=== PATIENT | female | born 1940 | race Caucasian/White ===

== ENCOUNTER 2019-12-28 09:47 | Outpatient (CLI) | payer MEDICARE, SELFPAY ==
--- NOTE | ~2019-12-28 | US_ITS ---
US retroperitoneal comp 12/28/2019 10:30 Procedure: Left renal atrophy. Renal mass. Indication: High-resolution ultrasound of the and bladder Comparison: No prior studies for comparison. Findings: There is left renal atrophy with severe hydronephrosis. There are multiple stones identifie d in the renal collecting system. Right renal echotexture is normal without hydronephrosis, mass or s tone. The right kidney measures 10.3 cm and left kidney measures 11 cm. Bladder is not distended for evaluation. Impression: 1: Severe left renal atrophy with stones and severe hydronephrosis. Reviewed, dictated and finalized at location B. Impression: 1: Severe left renal atrophy with stones and severe hydronephrosis.
== END 2019-12-28 09:48 | disposition home or self-care (01) ==
PROVIDERS: PCP Family Medicine; Visit Provider Urology
DX: N28.89 Other specified disorders of kidney and ureter (principal)
CPT/HCPCS: 76770

== ENCOUNTER 2020-12-04 14:04 | Outpatient (CLI) | payer MEDICARE, SELFPAY ==
--- NOTE | ~2020-12-04 | MM_ITS ---
EXAMINATION: MM screening [facility] BI w andria HISTORY: Screening mammogram TECHNIQUE: Craniocaudal and mediolateral oblique 3-D tomosynthesis images were obtained and synthetic 2-D images were generated. CAD analysis was submitted and interpreted. COMPARISON: 01/07/2019, 04/09/2016, 04/03/2015 BREAST PARENCHYMAL COMPOSITION: There are scattered areas of fibroglandular density. FINDINGS: Again noted is a stable mass of the lower inner left breast, consistent with benign finding . Scattered benign-appearing calcifications are present. There is no evidence of suspicious mass, saran cification, or architectural distortion to suggest malignancy in either breast. There has been no dannie picious interval change. IMPRESSION: 1. No mammographic evidence of malignancy. 2. Recommend routine screening mammography while the patient remains in good health. BI-RADS Category 2: Benign finding(s). Reviewed, dictated and finalized at location A. IMPRESSION: 1. No mammographic evidence of malignancy. 2. Recommend routine screening mammography while the patient remains in good he alth. BI-RADS Category 2: Benign finding(s).
--- NOTE | ~2020-12-04 | DEXA_ITS ---
Bone Density Report Name: Tana Mcfarlane Age: 80 Sex: Female Ethnicity: White Date of : 1940 Indication: osteopenia; height loss; asthma or emphysema; hysterectomy; postmenopausal Referring Provider: Alfredo Navarro Study: Bone densitometry was performed. Exam Date: December 04, 2020 Accession number: [id number] Bone Density: Region BMD T-score Z-score Classification AP Spine (L2, L3, L4) 0.811 -2.4 0.3 Osteopenia Femoral Neck (Left) 0.494 -3.2 -0.9 Osteoporosis Total Hip (Left) 0.728 -1.8 0.3 Osteopenia Total Hip Bilateral Avg 0.728 -1.8 0.3 Osteopenia Femoral Neck (Right) 0.627 -2.0 0.3 Osteopenia Total Hip (Right) 0.726 -1.8 0.3 Osteopenia World Health Organization criteria for BMD impression classify patients as: Normal (T-score at or above -1.0), Osteopenia (T-score between -1.0 and -2.5), or Osteoporosis (T-score at or below -2.5). 10-year Fracture Risk: FRAX not reported because: Some T-score for Spine Total or Hip Total or Femoral Neck at or below -2.5 Previous Exams: Region Exam Age BMD T-score BMD Change BMD Change Date g/cm2 vs Baseline vs Previous AP Spine(L2, L3, L4) 12/04/2020 80 0.811 -2.4 -0.146(-15.2%) -0.028(-3.4%)* 04/03/2015 74 0.839 -2.2 -0.117(-12.3%) -0.117(-12.3%) 03/22/2010 69 0.956 -1.1 Total Hip(Left) 12/04/2020 80 0.728 -1.8 -0.039(-5.1%)# -0.002(-0.3%) 04/03/2015 74 0.730 -1.7 -0.036(-4.8%)# -0.036(-4.8%)# 03/22/2010 69 0.767 -1.4 Total Hip(Right) 12/04/2020 80 0.726 -1.8 -0.032(-4.2%)# -0.007(-1.0%) 04/03/2015 74 0.733 -1.7 -0.025(-3.3%)# -0.025(-3.3%)# 03/22/2010 69 0.758 -1.5 *Denotes significance at 95% confidence level, LSC for AP Spine = 0.022 g/cm2, LSC for Total Hip = 0.027 g/cm2 Clinical Information Provided by Patient: Has used the following medications: Vitamin D, Calcium Has the following medical conditions: Asthma or Emphysema, Hysterectomy Patient maximum height was 63 Menopause Age: 48 No regular weight bearing exercise Does not regularly consume dairy products Drinks caffeinated beverages Onset of menses at age 13 Number of children 4 Impression: The patient has osteoporosis, based on the Left Femoral Neck T-score. The BMD for the AP Spine(L2, L3, L4) decreased, changing by -3.4% since the last DXA exam. Discussion: INCREASED RISK OF FRACTURE. BONE DENSITY IS UNDESIRABLY LOW AT ONE OR MORE SKELETAL SITES, CONSISTENT WITH POSTMENOPAUSAL OSTEOPOR
== END 2020-12-04 14:05 | disposition home or self-care (01) ==
PROVIDERS: PCP Family Medicine; Visit Provider Family Medicine
DX: Z12.31 Encounter for screening mammogram for malignant neoplasm of breast (principal); Z78.0 Asymptomatic menopausal state; M85.88 Other specified disorders of bone density and structure, other site; M85.852 Other specified disorders of bone density and structure, left thigh; M85.851 Other specified disorders of bone density and structure, right thigh; M81.0 Age-related osteoporosis without current pathological fracture
CPT/HCPCS: 77063; 77067; 77080

== ENCOUNTER 2021-02-22 11:40 | Outpatient (CLI) | payer MEDICARE, SELFPAY ==
--- NOTE | ~2021-02-22 | US_ITS ---
EXAMINATION: US renal BI EXAM DATE: 02/22/2021 12:39 INDICATION: Chronic cystitis. TECHNIQUE: Multiple grayscale and Doppler images of the kidneys were obtained (by a technologist who performed the scan) and subsequently reviewed. Comparison is made to prior examination from . FINDINGS: Right kidney: There is normal contour and echogenicity. It measures 10.5 x 5.0 x 5.1 centimeters. T here are no focal renal lesions identified. There is no hydronephrosis. Left kidney: There is normal contour and echogenicity with some renal cortical thinning. It measures 10.5 x 4.7 x 5.4 centimeters. Focal region was measured along the inferior calyx with some shadowing which could be nephrolithiasis measuring about 1 cm. Severe left-sided hydronephrosis, does not pinky ear significantly changed compared to previous examination. Bladder unremarkable. IMPRESSION: 1. Severe chronic left-sided hydronephrosis. Reviewed, dictated and finalized at location A. DECORATOR
== END 2021-02-22 11:41 | disposition home or self-care (01) ==
LOC: ANHIMG 11:45
PROVIDERS: PCP Family Medicine; Visit Provider Urology
DX: N30.20 Other chronic cystitis without hematuria (principal)
CPT/HCPCS: 76775

== ENCOUNTER 2022-01-12 11:23 | Observation (INO) | payer MEDICARE, SELFPAY ==
[2022-01-12] VITALS (17 sets, daily range): BP systolic 97–128; BP diastolic 40–80; PULSE 83–93; RESP 14–20; TEMP 35.9–37.5; O2SAT 91–100; BMI 29.0
--- NOTE | ~2022-01-12 | XR_ITS ---
EXAMINATION: XR abdomen/kub 1V DATE: 01/12/2022 21:52 INDICATION: Hematuria. TECHNIQUE: A supine view of the abdomen on 2 radiographs was obtained. COMPARISON: CT abdomen and pelvis 12/20/2018 FINDINGS: There are no dilated loops of bowel. The kidneys are obscured by bowel. There is no visible urolithiasis. IMPRESSION: 1. No visible urolithiasis. Reviewed, dictated and finalized at location B. IMPRESSION: 1. No visible urolithiasis.
--- NOTE | ~2022-01-12 | XR_ITS ---
EXAMINATION: XR abdomen/kub 1V DATE: 01/13/2022 14:35 INDICATION: Chronic urinary tract infection. TECHNIQUE: A supine view of the abdomen on 2 radiographs was obtained. COMPARISON: Abdomen radiographs 01/12/2022, CT abdomen and pelvis 12/20/2018 FINDINGS: There are no dilated loops of bowel. There are phleboliths in the pelvis. The right kidney is obscured by bowel. Again seen are stones in the left kidney. There is a 7 mm stone in proximal lef t ureter. Again seen are stones in distal left ureter overlying the left sacral ala. IMPRESSION: 1. Stones in the left kidney and left ureter. Reviewed, dictated and finalized at location B.
--- NOTE | ~2022-01-12 | US_ITS ---
EXAMINATION: US renal BI DATE: 01/13/2022 09:30 INDICATION: Acute kidney injury. TECHNIQUE: Multiple ultrasound grayscale images of the kidneys were obtained. COMPARISON: Ultrasound 02/22/2021, CT abdomen and pelvis 12/20/2018 FINDINGS: The right kidney measures 11.2 x 4.9 x 4.3 cm. The left kidney measures 13.5 x 6.8 x 6.0 cm. The righ t kidney demonstrates normal parenchymal echogenicity. There is cortical thinning of left kidney. The re is severe left hydronephrosis. The bladder is normal. IMPRESSION: 1. Chronic severe atrophy of left kidney with severe left hydronephrosis. 2. Normal right kidney. Reviewed, dictated and finalized at location B.
--- NOTE | ~2022-01-12 | CT_ITS ---
EXAMINATION: CT abdomen pelvis wo/w con DATE: 01/13/2022 16:27 INDICATION: Gross hematuria. Chronic urinary tract infection. TECHNIQUE: Computed tomography (CT) of the abdomen and pelvis was performed without and with intraven ous contrast using a total of 130 mL Omnipaque-350 intravenous contrast with a double-bolus technique for simultaneous opacification of the renal parenchyma and renal collecting system. Automated exposu re control and iterative reconstruction technique were employed. The dose-length product was 1284.60 mGy-cm. COMPARISON: CT abdomen and pelvis 12/20/2018 FINDINGS: The visualized portions of the lung bases demonstrate mild atelectasis. No pleural effusion. The hear t size is normal. There are coronary artery calcifications. No pericardial effusion. The liver, gallb ladder, spleen, pancreas, and right adrenal gland are normal. There is an 11 mm mass in left adrenal gland without change, likely an adenoma. Right kidney is normal. There is severe atrophy of left kidn ey. There is a 2.2 cm enhancing mass of left kidney. There is severe left hydronephrosis and hydroure ter. There are approximately 3 stones in left kidney measuring up to 9 mm. There are 2 stones in left ureter. The larger measures 4.1 x 1.1 x 0.9 cm. Right ureter is well opacified and is normal. Left u reter is not opacified by contrast. The bladder is normal. There are no dilated loops of bowel. The a ppendix is not visualized. There is a supraumbilical ventral hernia containing fat. There is a small sliding hiatal hernia. There are no pathologically enlarged lymph nodes. There is no free intraperito willam fluid. There is severe lumbar spondylosis. IMPRESSION: 1. 2.2 cm enhancing mass in left kidney, consistent with renal cell carcinoma, increased from 1.5 cm on 12/20/2018. 2. Stones in the left kidney and left ureter with severe left hydronephrosis and hydroureter and kina re left kidney atrophy. 3. Supraumbilical ventral hernia containing fat. Reviewed, dictated and finalized at location B. IMPRESSION: 1. 2.2 cm enhancing mass in left kidney, consistent with renal cell carcinoma, increased from 1.5 cm on 12/20/2018. 2. Stones in the left kidney and left ureter with severe left hydronephrosis an d hydroureter and severe left kidney atrophy. 3. Supraumbilical ventral hernia containing fat.
--- NOTE | ~2022-01-12 | XR_ITS ---
EXAMINATION: XR knee LT 3V DATE: 01/12/2022 12:16 INDICATION: Recent worsening chronic left knee pain TECHNIQUE: Anteroposterior, oblique and crosstable lateral views of the left knee were obtained COMPARISON: None. FINDINGS: Alignment is normal. No fracture. Tricompartmental osteoarthritis at the left knee with severe joint space narrowing in the medial compartment with suggestion of early remodeling of the articular surfac e of the medial tibial plateau. Marginal osteophytes in lateral and patellofemoral compartments. Smal l left knee joint effusion. Atherosclerotic calcifications at the popliteal artery.. IMPRESSION: 1. Severe medial compartment predominant tricompartmental osteoarthritis at the left knee. Reviewed, dictated and finalized at location A.
[2022-01-12] MEDS: SODIUM CHLORIDE 0.9% IV 1,000 ML 999 ML IV CONT (12:06)
[2022-01-12] MEDS: MORPHINE SULFATE (*CRX) 4 MG/ML INJ IV PUSH (12:06)
[2022-01-12 12:19] LABS: Basophils Percent Auto 0.3 % (0.2-1.2); Eosinophils Absolute Auto 0.2 K/mm3 (0-0.3); Eosinophils Percent Auto 2.3 % (0-4.4); Hematocrit 38.3 % (37.0-47.0); Hemoglobin 11.8 g/dL (12.0-15.0); Immature Granulocyte Absolute 0.04 K/mm3 (0.00-0.031); Immature Granulocyte Percent A 0.4 % (0-0.5); Lymphocytes Absolute Auto 2.16 K/mm3 (0.9-3.2); Lymphocytes Percent Auto 21.1 % (18.3-44.2); Mean Corpuscular HGB Conc 30.8 g/dl (32-36); Mean Corpuscular Hemoglobin 31.4 pg (26-34); Mean Corpuscular Volume 101.9 fl (80-100); Mean Platelet Volume 9.7 fl (7.4-10.4); Monocytes Absolute Auto 0.7 K/mm3 (0.1-0.6); Neutrophils Percent Auto 68.9 % (45.5-73.1); Platelet Count Result 269 k/mm3 (150-375); Red Blood Count 3.76 M/mm3 (4.2-5.4); Red Cell Distribution Width 14.7 % (11.5-14.5); White Blood Count 10.2 K/mm3 (4.5-10.0)
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
[2022-01-12 12:30] LABS: Anion Gap 13 mmol/L (8-16); Blood Urea Nitrogen 52 mg/dL (7-17); Calcium 9.1 mg/dL (8.4-10.2); Carbon Dioxide 20 mmol/L (22-30); Chloride 104 mmol/L (98-107); Estimated CRCL calculation 16 ml/min; Estimated Glomerular Filt Rate 20; Glucose 87 mg/dL (65-110); Potassium 4.5 mmol/L (3.4-5.0); Sodium 137 mmol/L (137-145)
[2022-01-12 13:18] LABS: Add Urine Microscopic? YES; Appearance Urine Cloudy (Clear); Bilirubin Urine 1+ (Negative); Blood Urine 3+ (Negative); Color Urine Light Red (Yellow); Glucose Urine UA Negative (Negative); Ketones Urine 1+ mg/dL (Negative); Leukocyte Esterase Ur Trace LEU/UL (Negative); Nitrate Urine Negative (Negative); Protein Urine 2+ mg/dL (Negative); Urobilinogen Urine 0.2 mg/dL (<2.0); pH Urine 5.5 (5.0-9.0)
[2022-01-12 13:28] LABS: Bacteria Urine Trace /hpf; Mucus Urine Rare /lpf; RBC Urine >75 /hpf (0-2); WBC Urine >75 /hpf
[2022-01-12] MEDS: SODIUM CHLORIDE 0.9% IV 1,000 ML 125 ML IV CONT ×2 (14:30→23:06)
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
--- NOTE | 2022-01-12 15:29 | ADMGEN ---
This patient, Tana Mcfarlane, was admitted to Medical Room 349-01. Patient/family oriented to hospital policies and general routines including ID bracelet, bed and alarms, visiting hours, pain management, procedures, bathroom and other care routines, personal items, smoking policy, room service/diet, and visiting hours. Information on how to activate the Rapid Response Team has been discussed. Patient/Family are encouraged to report perceived risks to care and to ask questions if they do not understand what they are told or what they should do.
[2022-01-12] MEDS: LIDOCAINE 5% PATCH 1 PATCH TRANSDERM (18:43)
[2022-01-12] MEDS: FLUTICASONE/SALMETEROL 115-21 MCG INHALER 1 PUFF 2 PUFF INHALATION (21:42)
[2022-01-13 05:44] LABS: Basophils Percent Auto 0.4 % (0.2-1.2); Eosinophils Absolute Auto 0.2 K/mm3 (0-0.3); Eosinophils Percent Auto 2.4 % (0-4.4); Hematocrit 33.2 % (37.0-47.0); Hemoglobin 10.3 g/dL (12.0-15.0); Immature Granulocyte Absolute 0.07 K/mm3 (0.00-0.031); Immature Granulocyte Percent A 0.9 % (0-0.5); Lymphocytes Absolute Auto 1.93 K/mm3 (0.9-3.2); Lymphocytes Percent Auto 25.5 % (18.3-44.2); Mean Corpuscular Hemoglobin 31.6 pg (26-34); Mean Corpuscular Volume 101.8 fl (80-100); Mean Platelet Volume 9.5 fl (7.4-10.4); Monocytes Absolute Auto 0.7 K/mm3 (0.1-0.6); Monocytes Percent Auto 8.9 % (2.6-8.5); Neutrophils Absolute Auto 4.7 K/mm3 (1.3-6.7); Neutrophils Percent Auto 61.9 % (45.5-73.1); Platelet Count Result 256 k/mm3 (150-375); Red Blood Count 3.26 M/mm3 (4.2-5.4); Red Cell Distribution Width 14.5 % (11.5-14.5); White Blood Count 7.6 K/mm3 (4.5-10.0)
[2022-01-13 06:00] VITALS: BP 147/53; PULSE 82; RESP 18; TEMP 36.3; O2SAT 95
[2022-01-13] MEDS: SODIUM CHLORIDE 0.9% IV 1,000 ML 125 ML IV CONT (06:04)
[2022-01-13 06:14] LABS: Alanine Aminotransferase 13 U/L (6-35); Albumin Level 3.1 g/dL (3.5-5.1); Alkaline Phosphatase 53 U/L (38-126); Anion Gap 8 mmol/L (8-16); Aspartate Amino Transferase 37 U/L (14-36); Bilirubin,Total 0.2 mg/dL (0.2-1.3); Blood Urea Nitrogen 31 mg/dL (7-17); Calcium 8.3 mg/dL (8.4-10.2); Carbon Dioxide 20 mmol/L (22-30); Chloride 110 mmol/L (98-107); Estimated CRCL calculation 30 ml/min; Estimated Glomerular Filt Rate 43; Glucose 99 mg/dL (65-110); Potassium 4.3 mmol/L (3.4-5.0); Sodium 138 mmol/L (137-145)
[2022-01-13 06:17] LABS: Lactic Acid Reflex < 0.5 mmol/L (0.7-2.0)
[2022-01-13] MEDS: FLUTICASONE/SALMETEROL 115-21 MCG INHALER 1 PUFF 2 PUFF INHALATION (08:10)
[2022-01-13] MEDS: ATORVASTATIN 20 MG TABLET PO (09:00)
[2022-01-13] MEDS: ASPIRIN 81 MG ENTERIC TABLET PO (09:00)
[2022-01-13] MEDS: MICONAZOLE NITRATE 2% CREAM 30 GM TUBE 1 APPLIC TOPICAL ×2 (09:01→20:32)
[2022-01-13] MEDS: LIDOCAINE 5% PATCH 1 PATCH TRANSDERM (09:02)
[2022-01-13 14:00] VITALS: BP 148/63; PULSE 81; RESP 20; TEMP 36.8; O2SAT 99
--- NOTE | 2022-01-13 15:14 | WPDURCON ---
Assessment and Plan Assessment and plan (1) Acute UTI: Code(s): N39.0 - Urinary tract infection, site not specified Status: Acute Assessment and Plan: Continue antibiotics, tailor to culture results. (2) MATT (acute kidney injury): Code(s): N17.9 - Acute kidney failure, unspecified Status: Acute Assessment and Plan: Improved, left hydronephrosis is chronic, not of concern at this time. Will get CT d/t uknown source of gross hematuria and chronic UTI's. (3) History of kidney stones: Code(s): Z87.442 - Personal history of urinary calculi Status: Acute Assessment and Plan: Not visible on x-Ray or CHACORTA. Will get CT to rule out. (4) Recurrent UTI: Code(s): N39.0 - Urinary tract infection, site not specified Status: Acute Assessment and Plan: Switch prophylaxis Trimethoprim to Keflex 250mg Thursday, Thursday, Thursday when she is finished with antibiotics for current infection. (5) Renal mass, left: Code(s): N28.89 - Other specified disorders of kidney and ureter Status: Chronic Assessment and Plan: Known on CHACORTA previously. (6) Hydronephrosis: Code(s): N13.30 - Unspecified hydronephrosis Status: Acute Assessment and Plan: Not a new finding chronic, paitent has no pain and creatinine is normal. No need to intervene. (7) Atrophic kidney: Code(s): N26.1 - Atrophy of kidney (terminal) Status: Acute (8) Gross hematuria: Code(s): R31.0 - Gross hematuria Status: Acute Assessment and Plan: Will get CT to further evaluate, if Urologically normal. I recommend a GI workup d/t low hemoglobin/hematocrit as a UTI would likely not contribute to this. I have discussed this plan with her daughter in law which the patient agreed to share her medical information with. Urology Consult Note HPI Date Seen: 01/13/22 Time Seen: 12:45 Requesting Physician: Misael Vallejo MD Primary Care Provider: Redd Carballo MD Consult Narrative Reason for consult: Gross Hematuria/Chronic UTI Narrative: Tana Mcfarlane is a 81 year old female who presented to the ER yesterday for worsening weakness and UTI. She initially went to the ER at [facility] on Thursday night by ambulance on 01/11/22 and was treated with a dose of Ceftriaxone and given antibiotics. She was then given a ride home d/t being so weak and put to bed by the EMS team. She then worsened the next day and her family called another ambulance and this time she was sent to our ER at [facility]. WBC is improved on IV Ceftriaxone to 7.6 and creatinine is improved as well to 1.20. She has a positive UA and cultures are still pending. CHACORTA shows chronic, severe atrophy of left kidney and severe left hydronephrosis and a normal right kidney. Her daughter in law was on speaker phone during our exam today to help provide medical information. She states that she was also hospitalized a month ago for a severe UTI, although she has been on suppressive Trimethoprim for chronic UTI's Thursday, Thursday and Thursday from Dr. Blunt for quite some time. She has had a known left atrophic kidney with hydro for quite some time. She states she doesn't have any pain at this time, but does have visible blood in her urine or feces, she is unsure. She wipes and sees a lot of blood on the toilet paper. Her H&H is slightly low as well. Review of Systems Cardiovascular: Cardiovascular: Denies chest pain Respiratory: Respiratory: Reports no additional respiratory complaints Gastrointestinal: Gastrointestinal: Denies abdominal pain, Denies nausea and Denies vomiting Genitourinary: Genitourinary: Reports hematuria, Denies dysuria, Denies flank pain and Denies urinary urgency PMFSH Past Medical History Medical History Arthritis of knee, degenerative Asthma Basal cell carcinoma of skin of nose Communicat
--- NOTE | 2022-01-13 16:46 | PM.IMPN ---
Progress Note: A&P Assessment and Plan (1) Recurrent UTI: Code(s): N39.0 - Urinary tract infection, site not specified Status: Acute Assessment and Plan: -UROLOGY HAS BEEN CONSULTED. THE PATIENT HAS SEEN DR. JULIAN IN THE PAST. SHE HAD BEEN ON TRIMETHOPRIM A PROPHYLAXIS FOR UTIS AND SHE STILL CONTINUES TO HAVE MULTIPLE UTIS. THE PATIENT HAD BEEN PRESCRIBED OMNICEF FROM [facility] LAST NIGHT BUT DID NOT START TO TAKE THOSE MEDICATIONS. -THE PATIENT WAS STARTED ON ROCEPHIN. -CULTURES ARE PENDING. CHANGE COURSE OF ANTIBIOTICS ACCORDING TO CULTURES. (2) Acute renal failure superimposed on stage 3b chronic kidney disease: Code(s): N17.9 - Acute kidney failure, unspecified; N18.32 - Chronic kidney disease, stage 3b Status: Acute Assessment and Plan: -THE PATIENT DID HAVE SOME DIARRHEA SO SHE IS SLIGHTLY DEHYDRATED. CONTINUE WITH IV FLUIDS. -HOLD LISINOPRIL AND HYDROCHLOROTHIAZIDE. -THE PATIENT HAS A HISTORY OF CHRONIC HYDRONEPHROSIS. -CONTINUE TO MONITOR LABS. -RENAL ULTRASOUND. -HOLD ANY NEPHROTOXIC MEDICATIONS. -THE PATIENT HAD TRIED VOLTAREN GEL ON HER KNEE BUT I FEAR THAT THERE MAY HAVE SOME SLOW ABSORPTION AND IT IS AN NSAID. SO I AM GOING TO HOLD OFF ON THE VOLTAREN GEL WELL. -CONTINUE WITH IV FLUIDS. 01/13/2022 interval history: patient with history of recurrent uti, seen by urologist to further evaluate, had ordered CT scan of abdomen and pelvic which showed: 1. 2.2 cm enhancing mass in left kidney, consistent with renal cell carcinoma, increased from 1.5 cm on 12/20/2018. 2. Stones in the left kidney and left ureter with severe left hydronephrosis and hydroureter and severe left kidney atrophy., will consult Dr. Angeles federal agent for further recommendation, meanwhile patient remains clinically stable c/o pain in her knees due to severe OA, applied lidoderm patche, will monitor, will have PT/OT evaluate the patient. (3) Asthma: Code(s): J45.909 - Unspecified asthma, uncomplicated Status: Acute Assessment and Plan: -CONTINUE WITH ALBUTEROL -CONTINUE SYMBICORT (4) Cornea transplant recipient: Code(s): Z94.7 - Corneal transplant status Status: Acute Assessment and Plan: -THIS HAS BEEN MANY YEARS AGO. (5) Hydronephrosis: Code(s): N13.30 - Unspecified hydronephrosis Status: Acute Assessment and Plan: -THIS APPEARS TO BE CHRONIC. -RENAL ULTRASOUND HAS BEEN ORDERED. (6) COPD (chronic obstructive pulmonary disease) case management patient: Code(s): J44.9 - Chronic obstructive pulmonary disease, unspecified Status: Acute Assessment and Plan: -CONTINUE WITH ALBUTEROL. -CONTINUE WITH SYMBICORT (7) Essential (primary) hypertension: Code(s): I10 - Essential (primary) hypertension Status: Chronic Assessment and Plan: -CONTINUE WITH DILTIAZEM (8) Hyperlipidemia: Code(s): E78.5 - Hyperlipidemia, unspecified Status: Acute Assessment and Plan: -CONTINUE WITH ATORVASTATIN. Plan PATIENT STATED THAT SHE WAS HAVING SOME DIARRHEA WE WILL SEND STOOL CULTURES. SHE IS ALSO COMPLAINING OF WEAKNESS SO I WILL ORDER PT OT EVALUATION. THE PATIENT AND HER DAUGHTER WOULD LIKE TO COMPLETE THEIR POWER ORDER CONTROL CLERK BLOOD BANK PAPERS SO I WILL CONSULT DATA INTEGRITY SPECIALIST Subjective Date/time seen: 01/13/22 16:46 Weakness HPI-Narrative: This is an 81-year-old female who has a history of having UTIs.? The patient has been on Macrobid and trimethoprim.? She sees the urologist here for her frequent urinary tract infections and chronic hydronephrosis.? The patient has known severe left hydronephrosis and severe left kidney atrophy.? The patient has been having more frequent UTIs.? The patient went to [facility] last night due to her weakness and UTI.? The patient was also complaining of left pain and was having difficulty ambulating.? The patient was prescribed cefdinir and given IV antibiotics
[2022-01-13 19:21] VITALS: BP 141/89; PULSE 91; RESP 18; TEMP 36.1; O2SAT 99
[2022-01-13 20:00] VITALS: PULSE 91; RESP 18; O2SAT 99
[2022-01-14 04:01] VITALS: BP 102/45; PULSE 67; RESP 18; TEMP 36.3; O2SAT 97
[2022-01-14] MEDS: SODIUM CHLORIDE 0.9% IV 1,000 ML 125 ML IV CONT (05:45)
[2022-01-14] MEDS: FLUTICASONE/SALMETEROL 115-21 MCG INHALER 1 PUFF 2 PUFF INHALATION (07:42)
[2022-01-14 07:43] VITALS: PULSE 74; O2SAT 96
--- NOTE | 2022-01-14 09:27 | PM.CNNEP ---
Assessment and Plan Assessment and plan (1) Acute renal failure superimposed on stage 3b chronic kidney disease: Code(s): N17.9 - Acute kidney failure, unspecified; N18.32 - Chronic kidney disease, stage 3b Status: Acute Assessment and Plan: the patient has chronic kidney disease. Her lowest creatinine is about 1.2. It does range between 1.2 and to however over the years. It seems a very with hydration status. Patient has chronic kidney disease is most likely due to the poorly functioning left kidney and also chronic hypertension. Patient has acute kidney injury. Was higher when she came in. it yoana to above to 2 days ago but then yesterday was back down to its baseline of 1.2. Cause of this could be multifactorial: The patient was probably dehydrated. She has been given some IV fluids. Patient had a UTI. Possible this had a some affect on her contralateral kidney function. The patient was on trimethoprim which can decrease the secretion of creatinine and so bump the serum creatinine up without a loss of GFR. At this point her creatinine is better after hydration and some antibiotics. Her trimethoprim was also discontinued. Is being switched to a different antibiotic anyway because she developed an infection while on it. I do not think we need to do any more evaluation of the kidneys from the functional status at this point. I told that I would be happy to follow her in the office as an outpatient for her chronic kidney disease or she could go back to Dr. Carballo to follow and then he could send her if there is a problem. (2) Acute UTI: Code(s): N39.0 - Urinary tract infection, site not specified Status: Acute Assessment and Plan: The patient is on ceftriaxone. (3) Hydronephrosis: Code(s): N13.30 - Unspecified hydronephrosis Status: Acute Assessment and Plan: This is chronic. Urology is following this (4) Renal mass, left: Code(s): N28.89 - Other specified disorders of kidney and ureter Status: Chronic Assessment and Plan: I am not sure if this is a room mass or not. Urology will follow this. (5) Essential (primary) hypertension: Code(s): I10 - Essential (primary) hypertension Status: Chronic Assessment and Plan: Her blood pressure ranges from 102-148. She is on diltiazem currently. History of Present Illness Reason for Consult Consult date: 01/14/22 Chief Complaint Chief complaint: MATT/UTI History of Present Illness Narrative: Tana is a very pleasant 81-year-old lady who has multiple medical problems including chronic kidney disease, recurrent UTIs, kidney stones in the past,arthritis, traumatic brain injury, monoclonal gammopathy, possible renal mass on the left. The patient has had chronic kidney disease for a long time. She used to see Dr. Guzmán in [place] before she retired several years ago. She stopped going to her a long time ago and has been following with Dr. Carballo as far as her creatinine has been going. Apparently things have been fairly stable. Creatinine does go up and down but is never better than 1.2. And that is what she was yesterday. She does occasionally have a higher creatinine if infected or dehydrated. she does have hypertension. The patient also has recurrent UTIs. She has being seeing Dr. Blunt for this and gets antibiotics 3 times a week to prevent the infections. She does have chronic hydronephrosis and a small poorly functioning kidney on the left. No procedures are anticipated for this because of its chronicity. She says that she has been told about this issue since she was 20 years old. The patient came into the emergency room because of increasing weakness. She had been diagnosed with a bladder infection the day before and was given antibiotics. But she grew weaker so came to the ER. She was given more antibiotics and admitted. Urology was
[2022-01-14] MEDS: ATORVASTATIN 20 MG TABLET PO (09:51)
[2022-01-14] MEDS: ASPIRIN 81 MG ENTERIC TABLET PO (09:51)
[2022-01-14] MEDS: LIDOCAINE 5% PATCH 1 PATCH TRANSDERM (09:51)
[2022-01-14] MEDS: MICONAZOLE NITRATE 2% CREAM 30 GM TUBE 1 APPLIC TOPICAL (09:52)
[2022-01-14 10:58] LABS: Hematocrit 33.8 % (37.0-47.0); Hemoglobin 10.7 g/dL (12.0-15.0); Mean Corpuscular HGB Conc 31.7 g/dl (32-36); Mean Corpuscular Hemoglobin 31.6 pg (26-34); Mean Corpuscular Volume 99.7 fl (80-100); Mean Platelet Volume 9.4 fl (7.4-10.4); Platelet Count Result 305 k/mm3 (150-375); Red Blood Count 3.39 M/mm3 (4.2-5.4); Red Cell Distribution Width 14.7 % (11.5-14.5); White Blood Count 6.7 K/mm3 (4.5-10.0)
[2022-01-14 11:29] LABS: Albumin Level 3.8 g/dL (3.5-5.1); Anion Gap 10 mmol/L (8-16); Blood Urea Nitrogen 18 mg/dL (7-17); Calcium 8.8 mg/dL (8.4-10.2); Carbon Dioxide 23 mmol/L (22-30); Chloride 109 mmol/L (98-107); Estimated CRCL calculation 36 ml/min; Estimated Glomerular Filt Rate 53; Glucose 179 mg/dL (65-110); Magnesium 1.8 mg/dL (1.6-2.3); Phosphorus 1.8 mg/dL (2.5-4.5); Sodium 142 mmol/L (137-145)
--- NOTE | 2022-01-14 14:42 | WPDUROPN2 ---
Progress Note: A&P Assessment and Plan (1) Gross hematuria: Code(s): R31.0 - Gross hematuria Status: Acute Assessment and Plan: Not related to UTI, as urine culture is negative. Possible that it is related to left renal mass and ureteral stones, although that kidney is atrophic and non functional. H&H is stable, patient is also having some rectal bleeding that may be falsifying the amount of blood coming from the urinary tract. (2) Atrophic kidney: Code(s): N26.1 - Atrophy of kidney (terminal) Status: Acute (3) Acute UTI: Code(s): N39.0 - Urinary tract infection, site not specified Status: Acute Assessment and Plan: No UTI, urine culture negative. OK to stop antibiotics and re-start prophylaxis after discharge, but switch to Keflex 250mg QD instead of Trimethoprim as she takes now, Thursday, Thursday and Thursday. (4) MATT (acute kidney injury): Code(s): N17.9 - Acute kidney failure, unspecified Status: Acute Assessment and Plan: Resolved, creatinine is 1.00. (5) Ureteral calculus, left: Code(s): N20.1 - Calculus of ureter Status: Acute Assessment and Plan: NO plans to intervene as the left kidney is atrophic and non functioning and she has no pain on that side. (6) Renal calculus, left: Code(s): N20.0 - Calculus of kidney Status: Acute Assessment and Plan: No intervention needed at this time as they are not causing pain or problems. (7) Renal mass, left: Code(s): N28.89 - Other specified disorders of kidney and ureter Status: Chronic Assessment and Plan: slightly increased in size [facility] 2019 scan to 2.2cm. Discussed with Dr. Blunt. He will continue to watch this mass as it was known about previously and is not increasing in size, the management would be a nephrectomy if she were a candidate and the size of the mass became too large. He will see her back in the office in 2 months. Ok to discharge home per urology. (8) Recurrent UTI: Code(s): N39.0 - Urinary tract infection, site not specified Status: Acute Assessment and Plan: Resume prophylaxsis as state above. Subjective Subjective Date/Time Seen: 01/14/22 14:42 Patient seems to be doing well today. She continues to have gross hematuria, however her urine culture is negative. She did have a CT scan done which does confirm that the known left renal mass is concerning for renal cell carcinoma and has slightly increased in size since her last imaging to 2.2cm and does enhance. She also has severe left hydronephrosis, 3 stones in the left kidney measuring up to 9mm and 2 stones in the left ureter measuring up to 4.1x1.1x0.9cm. They are visible on KUB. She has no pain in her flank or abdomen, H&H is stable and creatinine is 1.00. Review of Systems Constitutional: Constitutional: Reports no additional constitutional complaints Cardiovascular: Cardiovascular: Denies chest pain Respiratory: Respiratory: Reports no additional respiratory complaints Genitourinary: Genitourinary: Denies hematuria, Denies nocturia, Denies dysuria, Denies pelvic pain, Denies flank pain and Denies urinary urgency Exam Const: General: cooperative Resp: Effort & Inspection: normal respiratory effort Cardio: Rate: regular rate GI: GI Palp: Yes Soft to palpation and No Tenderness to palpation present (GI) : General: Yes no CVA tenderness Extrem: Right lower extremity: no edema Left lower extremity: no edema Objective Data Vital Signs Vital Signs: Vital Signs - 24 hr 01/13/22 19:21 01/13/22 20:00 01/14/22 04:01 Temperature 97 F L 97.4 F L Pulse Rate 91 91 67 Respiratory Rate 18 18 18 Blood Pressure 141/89 H 102/45 L Pulse Oximetry 99 99 97 Oxygen Delivery Room Air 01/14/22 07:43 01/14/22 10:00 Temperature Pulse Rate 74 Respiratory Rate Blood Pressure Pulse Oximetry 96 Oxygen Delivery Room Air Room Air In
--- NOTE | 2022-01-14 16:11 | PM.DS ---
DS: Admitting Diagnosis Discharge Date 01/14/22 Admitting Diagnosis gross hematuria DS: Discharge Diagnosis Discharge Diagnosis (1) Recurrent UTI: Code(s): N39.0 - Urinary tract infection, site not specified Status: Acute Assessment and Plan: -UROLOGY HAS BEEN CONSULTED. THE PATIENT HAS SEEN DR. JULIAN IN THE PAST. SHE HAD BEEN ON TRIMETHOPRIM A PROPHYLAXIS FOR UTIS AND SHE STILL CONTINUES TO HAVE MULTIPLE UTIS. THE PATIENT HAD BEEN PRESCRIBED OMNICEF FROM [facility] LAST NIGHT BUT DID NOT START TO TAKE THOSE MEDICATIONS. -THE PATIENT WAS STARTED ON ROCEPHIN. -CULTURES ARE PENDING. CHANGE COURSE OF ANTIBIOTICS ACCORDING TO CULTURES. (2) Acute renal failure superimposed on stage 3b chronic kidney disease: Code(s): N17.9 - Acute kidney failure, unspecified; N18.32 - Chronic kidney disease, stage 3b Status: Acute Assessment and Plan: -THE PATIENT DID HAVE SOME DIARRHEA SO SHE IS SLIGHTLY DEHYDRATED. CONTINUE WITH IV FLUIDS. -HOLD LISINOPRIL AND HYDROCHLOROTHIAZIDE. -THE PATIENT HAS A HISTORY OF CHRONIC HYDRONEPHROSIS. -CONTINUE TO MONITOR LABS. -RENAL ULTRASOUND. -HOLD ANY NEPHROTOXIC MEDICATIONS. -THE PATIENT HAD TRIED VOLTAREN GEL ON HER KNEE BUT I FEAR THAT THERE MAY HAVE SOME SLOW ABSORPTION AND IT IS AN NSAID. SO I AM GOING TO HOLD OFF ON THE VOLTAREN GEL WELL. -CONTINUE WITH IV FLUIDS. 01/13/2022 interval history: patient with history of recurrent uti, seen by urologist to further evaluate, had ordered CT scan of abdomen and pelvic which showed: 1. 2.2 cm enhancing mass in left kidney, consistent with renal cell carcinoma, increased from 1.5 cm on 12/20/2018. 2. Stones in the left kidney and left ureter with severe left hydronephrosis and hydroureter and severe left kidney atrophy., will consult Dr. Angeles hyperbaric technician for further recommendation, meanwhile patient remains clinically stable c/o pain in her knees due to severe OA, applied lidoderm patche, will monitor, will have PT/OT evaluate the patient. (3) Asthma: Code(s): J45.909 - Unspecified asthma, uncomplicated Status: Acute Assessment and Plan: -CONTINUE WITH ALBUTEROL -CONTINUE SYMBICORT (4) Cornea transplant recipient: Code(s): Z94.7 - Corneal transplant status Status: Acute Assessment and Plan: -THIS HAS BEEN MANY YEARS AGO. (5) Hydronephrosis: Code(s): N13.30 - Unspecified hydronephrosis Status: Acute Assessment and Plan: -THIS APPEARS TO BE CHRONIC. -RENAL ULTRASOUND HAS BEEN ORDERED. (6) COPD (chronic obstructive pulmonary disease) case management patient: Code(s): J44.9 - Chronic obstructive pulmonary disease, unspecified Status: Acute Assessment and Plan: -CONTINUE WITH ALBUTEROL. -CONTINUE WITH SYMBICORT (7) Essential (primary) hypertension: Code(s): I10 - Essential (primary) hypertension Status: Chronic Assessment and Plan: -CONTINUE WITH DILTIAZEM (8) Hyperlipidemia: Code(s): E78.5 - Hyperlipidemia, unspecified Status: Acute Assessment and Plan: -CONTINUE WITH ATORVASTATIN. Plan PATIENT STATED THAT SHE WAS HAVING SOME DIARRHEA WE WILL SEND STOOL CULTURES. SHE IS ALSO COMPLAINING OF WEAKNESS SO I WILL ORDER PT OT EVALUATION. THE PATIENT AND HER DAUGHTER WOULD LIKE TO COMPLETE THEIR POWER TESTING SPECIALIST PAPERS SO I WILL CONSULT BRAND MANAGER DS: Summary Hospital Course Reason for hospitalization: Weakness Narrative: This is an 81-year-old female who has a history of having UTIs.? The patient has been on Macrobid and trimethoprim.? She sees the urologist here for her frequent urinary tract infections and chronic hydronephrosis.? The patient has known severe left hydronephrosis and severe left kidney atrophy.? The patient has been having more frequent UTIs.? The patient went to [facility] last night due to her weakness and UTI.? The patient was also complaining of lef
== END 2022-01-14 15:30 | disposition home health service (06) ==
LOC: ANHED 11:55 → ANH3MED 14:59
PROVIDERS: Nurse Practitioner; Admitting Provider Family Medicine; Emergency Provider Emergency Medicine; PCP Family Medicine; Visit Provider Family Medicine
DX: N17.9 Acute kidney failure, unspecified (principal); N39.0 Urinary tract infection, site not specified; R53.1 Weakness; M25.562 Pain in left knee; Z79.82 Long term (current) use of aspirin; N18.32 Chronic kidney disease, stage 3b; N26.1 Atrophy of kidney (terminal); N13.2 Hydronephrosis with renal and ureteral calculous obstruction; J45.909 Unspecified asthma, uncomplicated; Z94.7 Corneal transplant status; R31.0 Gross hematuria; J44.9 Chronic obstructive pulmonary disease, unspecified; E78.5 Hyperlipidemia, unspecified; Z87.442 Personal history of urinary calculi; I10 Essential (primary) hypertension; R26.2 Difficulty in walking, not elsewhere classified
CPT/HCPCS: 36415; 73562; 74018; 74178; 76775; 80048; 80053; 80069; 81001; 82728; 83605; 83735; 85025; 85027; 87086; 87088; 94640; 96361; 96365; 96375; 97110; 97161; 97165; 97530; 99285; A9270; G0378; J0696; J2270; J7030; Q9967

== ENCOUNTER 2022-01-31 13:05 | Outpatient (CLI) | payer MEDICARE, SELFPAY ==
[2022-01-31 19:54] LABS: Anion Gap 18 mmol/L (8-16); Blood Urea Nitrogen 27 mg/dL (7-17); Calcium 10.1 mg/dL (8.4-10.2); Carbon Dioxide 23 mmol/L (22-30); Chloride 102 mmol/L (98-107); Estimated Glomerular Filt Rate 36; Glucose 141 mg/dL (65-110); Potassium 4.2 mmol/L (3.4-5.0); Sodium 143 mmol/L (137-145)
== END 2022-01-31 13:06 | disposition home or self-care (01) ==
LOC: ANHGOSHLAB 13:08
PROVIDERS: PCP Family Medicine; Visit Provider Family Medicine
DX: N17.9 Acute kidney failure, unspecified (principal)
CPT/HCPCS: 36415; 80048

== ENCOUNTER 2022-03-20 13:02 | Outpatient (CLI) | payer MEDICARE, SELFPAY ==
[2022-03-20 19:17] LABS: Hematocrit 36.2 % (37.0-47.0); Mean Corpuscular HGB Conc 30.4 g/dl (32-36); Mean Corpuscular Hemoglobin 28.4 pg (26-34); Mean Corpuscular Volume 93.5 fl (80-100); Mean Platelet Volume 10.6 fl (7.4-10.4); Platelet Count Result 390 k/mm3 (150-375); Red Blood Count 3.87 M/mm3 (4.2-5.4); Red Cell Distribution Width 14.7 % (11.5-14.5); White Blood Count 9.7 K/mm3 (4.5-10.0)
[2022-03-20 19:21] LABS: Albumin Level 4.7 g/dL (3.5-5.1); Anion Gap 9 mmol/L (8-16); Blood Urea Nitrogen 21 mg/dL (7-17); Calcium 9.7 mg/dL (8.4-10.2); Carbon Dioxide 29 mmol/L (22-30); Chloride 104 mmol/L (98-107); Estimated Glomerular Filt Rate 53; Glucose 88 mg/dL (65-110); Phosphorus 3.7 mg/dL (2.5-4.5); Potassium 4.6 mmol/L (3.4-5.0); Sodium 142 mmol/L (137-145)
[2022-03-20 21:35] LABS: Creatinine Urine 37.3 mg/dL; Total Protein Urine Random 10 mg/dL; Ur Ttl Prot Creatinine Ratio 0.27 mg/mg (0-0.20)
== END 2022-03-20 13:03 | disposition home or self-care (01) ==
LOC: ANHGOSHLAB 13:05
PROVIDERS: PCP Family Medicine; Visit Provider Internal Medicine Nephrology
DX: N18.32 Chronic kidney disease, stage 3b (principal)
CPT/HCPCS: 36415; 80069; 82570; 84156; 85027

== ENCOUNTER 2022-06-12 13:20 | Outpatient (CLI) | payer MEDICARE, SELFPAY ==
[2022-06-12 20:08] LABS: Alanine Aminotransferase 18 U/L (6-35); Albumin Level 4.9 g/dL (3.5-5.1); Alkaline Phosphatase 65 U/L (38-126); Anion Gap 9 mmol/L (8-16); Aspartate Amino Transferase 37 U/L (14-36); Bilirubin,Total 0.4 mg/dL (0.2-1.3); Blood Urea Nitrogen 27 mg/dL (7-17); Calcium 10.5 mg/dL (8.4-10.2); Carbon Dioxide 26 mmol/L (22-30); Chloride 101 mmol/L (98-107); Cholesterol 234 mg/dL (0-200); Estimated Glomerular Filt Rate 53; Glucose 97 mg/dL (65-110); HDL Direct 46 mg/dL; Potassium 4.6 mmol/L (3.4-5.0); Sodium 136 mmol/L (137-145); Triglycerides 216 mg/dL (<150)
[2022-06-12 20:20] LABS: LDL Cholesterol Direct 121 mg/dL
== END 2022-06-12 13:21 | disposition home or self-care (01) ==
LOC: ANHGOSHLAB 13:23
PROVIDERS: PCP Family Medicine; Visit Provider Family Medicine
DX: E78.5 Hyperlipidemia, unspecified (principal)
CPT/HCPCS: 36415; 80053; 80061

== ENCOUNTER 2023-03-24 12:17 | Outpatient (CLI) | payer MEDICARE, SELFPAY ==
--- NOTE | ~2023-03-24 | XR_ITS ---
EXAMINATION: XR abdomen/kub 1V INDICATION: Right kidney stone TECHNIQUE: Supine views of the abdomen were obtained on 2 radiographs. COMPARISON: 01/13/2022 FINDINGS: There are stable stones of the left kidney lower pole measuring up to 7 mm. There is a ques tionable stone proximal left ureter. There are phleboliths of the pelvis. The bowel gas pattern is no nspecific. The visualized lung bases are clear. There is mild osteoarthritis of the hips. IMPRESSION: 1. Stable stones of the left kidney and possible stone of the left proximal ureter. Reviewed, dictated and finalized at location L. STACK SOFTWARE ENGINEER IMPRESSION: 1. Stable stones of the left kidney and possible stone of the left proximal ure ter.
== END 2023-03-24 12:18 | disposition home or self-care (01) ==
PROVIDERS: PCP Family Medicine; Visit Provider Urology
DX: N28.89 Other specified disorders of kidney and ureter (principal)
CPT/HCPCS: 74018

== ENCOUNTER 2023-07-02 14:01 | Outpatient (CLI) | payer MEDICARE, SELFPAY ==
[2023-07-02 16:45] LABS: Basophils Percent Auto 0.5 % (0.2-1.2); Eosinophils Absolute Auto 0.2 K/mm3 (0-0.3); Eosinophils Percent Auto 1.8 % (0-4.4); Hematocrit 41.4 % (37.0-47.0); Hemoglobin 12.8 g/dL (12.0-15.0); Immature Granulocyte Absolute 0.04 K/mm3 (0.00-0.031); Immature Granulocyte Percent A 0.5 % (0-0.5); Lymphocytes Absolute Auto 3.33 K/mm3 (0.9-3.2); Lymphocytes Percent Auto 37.5 % (18.3-44.2); Mean Corpuscular HGB Conc 30.9 g/dl (32-36); Mean Corpuscular Hemoglobin 29.5 pg (26-34); Mean Corpuscular Volume 95.4 fl (80-100); Mean Platelet Volume 10.4 fl (7.4-10.4); Monocytes Absolute Auto 0.6 K/mm3 (0.1-0.6); Monocytes Percent Auto 6.4 % (2.6-8.5); Neutrophils Absolute Auto 4.7 K/mm3 (1.3-6.7); Neutrophils Percent Auto 53.3 % (45.5-73.1); Platelet Count Result 341 k/mm3 (150-375); Red Blood Count 4.34 M/mm3 (4.2-5.4); Red Cell Distribution Width 15.4 % (11.5-14.5); White Blood Count 8.9 K/mm3 (4.5-10.0)
[2023-07-02 18:04] LABS: Alanine Aminotransferase 14 U/L (6-35); Albumin Level 4.8 g/dL (3.5-5.1); Alkaline Phosphatase 75 U/L (38-126); Anion Gap 7 mmol/L (8-16); Aspartate Amino Transferase 54 U/L (14-36); Bilirubin,Total 0.5 mg/dL (0.2-1.3); Blood Urea Nitrogen 32 mg/dL (7-17); Calcium 10.5 mg/dL (8.4-10.2); Carbon Dioxide 29 mmol/L (22-30); Chloride 104 mmol/L (98-107); Cholesterol 224 mg/dL (0-200); Estimated Glomerular Filt Rate 48; Glucose 96 mg/dL (65-110); HDL Direct 38 mg/dL; Potassium 3.9 mmol/L (3.4-5.0); Sodium 140 mmol/L (137-145); Triglycerides 189 mg/dL (<150)
[2023-07-02 18:14] LABS: LDL Cholesterol Direct 126 mg/dL
[2023-07-07 20:07] LABS: ANA Cascade Screen Negative (Negative)
== END 2023-07-02 14:02 | disposition home or self-care (01) ==
LOC: ANHGOSHLAB 14:03
PROVIDERS: PCP Family Medicine; Visit Provider Family Medicine
DX: E78.5 Hyperlipidemia, unspecified (principal); N17.9 Acute kidney failure, unspecified; N18.32 Chronic kidney disease, stage 3b; R29.0 Tetany; M79.606 Pain in leg, unspecified
CPT/HCPCS: 36415; 80053; 80061; 82607; 84443; 85025; 86038; 86225; 86235; 86364

== ENCOUNTER 2023-08-13 13:57 | Outpatient (CLI) | payer MEDICARE, SELFPAY | END 2023-08-13 13:58 | disposition home or self-care (01) | LOC: ANHGOSHLAB 13:58 | PROVIDERS: PCP Family Medicine; Visit Provider Family Medicine | DX: E53.8 Deficiency of other specified B group vitamins (principal) | CPT/HCPCS: 36415; 82607 ==

== ENCOUNTER 2024-01-29 12:32 | Outpatient (CLI) | payer MEDICARE, SELFPAY ==
[2024-01-29 18:15] LABS: Alanine Aminotransferase 16 U/L (6-35); Albumin Level 4.4 g/dL (3.5-5.1); Alkaline Phosphatase 63 U/L (38-126); Anion Gap 10 mmol/L (4-12); Aspartate Amino Transferase 45 U/L (14-36); Basophils Absolute Auto 0.1 K/mm3 (0.0-0.1); Basophils Percent Auto 0.8 % (0.2-1.2); Bilirubin,Total 0.3 mg/dL (0.2-1.3); Blood Urea Nitrogen 23 mg/dL (7-17); Calcium 9.7 mg/dL (8.4-10.2); Carbon Dioxide 25 mmol/L (22-30); Chloride 104 mmol/L (98-107); Cholesterol 174 mg/dL (0-200); Eosinophils Absolute Auto 0.2 K/mm3 (0-0.3); Eosinophils Percent Auto 2.4 % (0-4.4); Estimated Glomerular Filt Rate 39; Glucose 91 mg/dL (65-110); HDL Direct 42 mg/dL; Hematocrit 26.6 % (37.0-47.0); Hemoglobin 7.1 g/dL (12.0-15.0); Immature Granulocyte Absolute 0.04 K/mm3 (0.00-0.031); Immature Granulocyte Percent A 0.4 % (0-0.5); Lymphocytes Absolute Auto 2.89 K/mm3 (0.9-3.2); Lymphocytes Percent Auto 31.4 % (18.3-44.2); Mean Corpuscular HGB Conc 26.7 g/dl (32-36); Mean Corpuscular Volume 74.9 fl (80-100); Monocytes Absolute Auto 0.7 K/mm3 (0.1-0.6); Monocytes Percent Auto 7.4 % (2.6-8.5); Neutrophils Absolute Auto 5.3 K/mm3 (1.3-6.7); Neutrophils Percent Auto 57.6 % (45.5-73.1); Nucleated Red Blood Cells Perc 0.2 % (0.0-0.2); Platelet Count Result 430 k/mm3 (150-375); Potassium 5.6 mmol/L (3.4-5.0); Red Blood Count 3.55 M/mm3 (4.2-5.4); Red Cell Distribution Width 18.9 % (11.5-14.5); Sodium 139 mmol/L (137-145); Triglycerides 295 mg/dL (<150); White Blood Count 9.2 K/mm3 (4.5-10.0)
[2024-01-29 18:25] LABS: LDL Cholesterol Direct 66 mg/dL
[2024-01-29 18:42] LABS: Hemoglobin A1C 5.4 % (<5.7)
[2024-01-29 19:10] LABS: Platelet Estimate Increased (Adequate)
[2024-01-29 19:11] LABS: Hypochromasia 1+; Microcytosis 1+ (NORMAL); Schistocytes None Seen
[2024-01-29 19:12] LABS: Anisocytosis 2+
== END 2024-01-29 12:33 | disposition home or self-care (01) ==
LOC: ANHGOSHLAB 12:33
PROVIDERS: PCP Family Medicine; Visit Provider Family Medicine
DX: R73.9 Hyperglycemia, unspecified (principal); E53.8 Deficiency of other specified B group vitamins; K75.81 Nonalcoholic steatohepatitis (NASH); N18.31 Chronic kidney disease, stage 3a
CPT/HCPCS: 36415; 80053; 80061; 83036; 85025

== ENCOUNTER 2024-02-08 12:59 | Outpatient (CLI) | payer MEDICARE, SELFPAY ==
[2024-02-08 14:26] LABS: Basophils Percent Auto 0.3 % (0.2-1.2); Eosinophils Absolute Auto 0.1 K/mm3 (0-0.3); Hemoglobin 7.1 g/dL (12.0-15.0); Immature Granulocyte Absolute 0.12 K/mm3 (0.00-0.031); Immature Platelet Fraction Pct 1.3 % (0.9-11.2); Lymphocytes Absolute Auto 3.84 K/mm3 (0.9-3.2); Lymphocytes Percent Auto 32.8 % (18.3-44.2); Mean Corpuscular HGB Conc 27.3 g/dl (32-36); Mean Corpuscular Hemoglobin 20.1 pg (26-34); Mean Corpuscular Volume 73.7 fl (80-100); Mean Platelet Volume 9.8 fl (7.4-10.4); Monocytes Percent Auto 8.6 % (2.6-8.5); Neutrophils Absolute Auto 6.6 K/mm3 (1.3-6.7); Neutrophils Percent Auto 56.3 % (45.5-73.1); Nucleated Red Blood Cells Perc 0.2 % (0.0-0.2); Platelet Count Result 420 k/mm3 (150-375); Red Blood Count 3.53 M/mm3 (4.2-5.4); Red Cell Distribution Width 19.5 % (11.5-14.5); Reticulocyte Hemoglobin Conten 19.5 pg (28.2-36.6); Reticulocyte Percent 2.03 % (0.7-4.3); Reticulocytes Absolute 0.07 10^6/uL (0.02-0.10); White Blood Count 11.7 K/mm3 (4.5-10.0)
[2024-02-08 14:36] LABS: Iron 19 ug/dL (37-170)
[2024-02-08 14:46] LABS: Percent Iron Saturation 4 % (20-50)
[2024-02-08 15:05] LABS: Platelet Estimate Increased (Adequate)
[2024-02-08 15:06] LABS: Schistocytes None Seen
[2024-02-08 15:07] LABS: Anisocytosis 2+; Hypochromasia 1+
[2024-02-08 15:08] LABS: Microcytosis 1+ (NORMAL)
[2024-02-12 14:33] LABS: Erythropoietin (EPO) 75.8 mIU/mL (2.6-18.5)
== END 2024-02-08 13:00 | disposition home or self-care (01) ==
LOC: ANHGOSHLAB 13:01
PROVIDERS: PCP Family Medicine; Visit Provider Family Medicine
DX: D50.9 Iron deficiency anemia, unspecified (principal); E87.5 Hyperkalemia
CPT/HCPCS: 36415; 82668; 83540; 83550; 85025; 85046; 85055

== ENCOUNTER 2024-02-29 12:50 | Outpatient (CLI) | payer MEDICARE, SELFPAY ==
[2024-02-29 20:03] LABS: Basophils Percent Auto 0.6 % (0.2-1.2); Eosinophils Absolute Auto 0.2 K/mm3 (0-0.3); Eosinophils Percent Auto 2.5 % (0-4.4); Hemoglobin 9.9 g/dL (12.0-15.0); Immature Granulocyte Absolute 0.01 K/mm3 (0.00-0.031); Immature Granulocyte Percent A 0.1 % (0-0.5); Immature Platelet Fraction Pct 1.7 % (0.9-11.2); Immature Reticulocyte Fraction 18.7 % (3.0-15.9); Lymphocytes Absolute Auto 2.07 K/mm3 (0.9-3.2); Lymphocytes Percent Auto 30.7 % (18.3-44.2); Mean Corpuscular HGB Conc 29.1 g/dl (32-36); Mean Corpuscular Hemoglobin 24.1 pg (26-34); Mean Corpuscular Volume 82.7 fl (80-100); Mean Platelet Volume 10.2 fl (7.4-10.4); Monocytes Absolute Auto 0.4 K/mm3 (0.1-0.6); Monocytes Percent Auto 5.5 % (2.6-8.5); Neutrophils Absolute Auto 4.1 K/mm3 (1.3-6.7); Neutrophils Percent Auto 60.6 % (45.5-73.1); Platelet Count Result 336 k/mm3 (150-375); Red Blood Count 4.11 M/mm3 (4.2-5.4); Red Cell Distribution Width 29.2 % (11.5-14.5); Reticulocyte Hemoglobin Conten 30.4 pg (28.2-36.6); Reticulocytes Absolute 0.09 10^6/uL (0.02-0.10); White Blood Count 6.7 K/mm3 (4.5-10.0)
[2024-02-29 20:37] LABS: Anion Gap 9 mmol/L (4-12); Blood Urea Nitrogen 32 mg/dL (7-17); Calcium 10.3 mg/dL (8.4-10.2); Carbon Dioxide 26 mmol/L (22-30); Chloride 104 mmol/L (98-107); Estimated Glomerular Filt Rate 43; Glucose 88 mg/dL (65-110); Potassium 5.6 mmol/L (3.4-5.0); Sodium 139 mmol/L (137-145)
[2024-02-29 20:47] LABS: Hypochromasia 1+; Platelet Estimate Adequate (Adequate); Schistocytes None Seen
[2024-02-29 20:48] LABS: Anisocytosis 3+
[2024-02-29 23:37] LABS: Iron 346 ug/dL (37-170)
[2024-02-29 23:46] LABS: Percent Iron Saturation 92 % (20-50)
[2024-03-03 14:48] LABS: Erythropoietin (EPO) 32.1 mIU/mL (2.6-18.5)
== END 2024-02-29 12:51 | disposition home or self-care (01) ==
LOC: ANHGOSHLAB 12:52
PROVIDERS: PCP Family Medicine; Visit Provider Family Medicine
DX: D50.9 Iron deficiency anemia, unspecified (principal); E87.5 Hyperkalemia; N18.31 Chronic kidney disease, stage 3a
CPT/HCPCS: 36415; 80048; 82668; 82728; 83540; 83550; 85025; 85046; 85055

== ENCOUNTER 2024-08-31 11:49 | Outpatient (CLI) | payer MEDICARE, SELFPAY ==
--- NOTE | ~2024-08-31 | XR_ITS ---
EXAMINATION: XR chest 2V 08/31/2024 12:25 INDICATION: Cough PROCEDURE: 2 view chest COMPARISON: 05/17/2008 FINDINGS: No focal pneumonia, pleural effusion, edema or pneumothorax. There is bibasilar atelectasis . The cardiomediastinal silhouette is within normal limits. There are no pleural effusions. There i s no pneumothorax suspected. IMPRESSION: 1: Bibasilar atelectasis. Reviewed, dictated and finalized at location B. IMPRESSION: 1: Bibasilar atelectasis.
--- OUTSIDE RECORDS SUMMARY | 2024-08-31 11:58 | XMS_ITS | CONTINUITY OF CARE DOCUMENT ---
Author Name raciel schrader Address Unknown Organization [facility] Address [address] [place] [address] Phone [phone] Care Team Providers Care Belt Repairer Name Role Phone Tima Martin MD Unavailable [phone] Tima Martin MD Unavailable [phone] INSURANCE PROVIDERS Payer name Policy type / Coverage type [place] red republican ID [employer] Commercial insurance company [id number]
== END 2024-08-31 11:50 | disposition home or self-care (01) ==
PROVIDERS: PCP Family Medicine; Visit Provider Nurse Practitioner Family
DX: J98.11 Atelectasis (principal)
CPT/HCPCS: 71046

== ENCOUNTER 2024-09-14 13:37 | Outpatient (CLI) | payer MEDICARE, SELFPAY ==
--- OUTSIDE RECORDS SUMMARY | 2024-09-14 13:42 | XMS_ITS | CONTINUITY OF CARE DOCUMENT ---
Author Name raciel schrader Address Unknown Organization [facility] Address [address] [place] [address] Phone [phone] Care Team Providers Care Environmental Test Technician Name Role Phone Tima Martin MD Unavailable [phone] Tima Martin MD Unavailable [phone] INSURANCE PROVIDERS Payer name Policy type / Coverage type [place] red constitution party ID [employer] Commercial insurance company [id number]
--- NOTE | 2024-09-14 16:12 | WPDPFTINT ---
PFT Procedure Performed PFT Procedure Performed Plethysmography (Lung Vol) Diffusing Cap (DLCO) Flow Vol Loop Spirometry w/o Bronchodil PFT Interpretation This is a pulmonary function test with spirometry, plethysmography and diffusing capacity. The test was performed and results interpreted in accordance with the 2019 and 2005 ATS/ERS Task Force guidelines respectively using the Global Lung Function Initiative-2012 reference equations. Patient demonstrated good effort and cooperation. Reproducibility criteria were met. The quality of the spirometry maneuver was Grade B. Findings: Spirometry: The contour the inspiratory and expiratory flow tracing are normal. The FVC is 2.08 L, 94% predicted. The FEV1 is 1.42 L, 85% predicted. The FEV1: FVC ratio 69%. Plethysmography: The total lung capacity is 4.74 L, 103% predicted. The functional residual capacity is 1.92 L, 72% predicted. The residual volume is 1.89 L, 82% predicted. Diffusing capacity: The diffusing capacity unadjusted for hemoglobin and carboxyhemoglobin is 12.9, 72% predicted. The diffusing capacity adjusted for alveolar volume is 3.98, 94% predicted. Impression: The spirometry is normal without evidence of an obstructive abnormality. The lung volumes are normal. The diffusing capacity is normal. There are no prior studies for comparison
== END 2024-09-14 13:38 | disposition home or self-care (01) ==
LOC: ANHPFT 13:39
PROVIDERS: PCP Family Medicine; Visit Provider Nurse Practitioner Family
DX: J44.9 Chronic obstructive pulmonary disease, unspecified (principal)
CPT/HCPCS: 94375; 94726; 94729

== ENCOUNTER 2024-12-22 14:51 | Outpatient (CLI) | payer MEDICARE, SELFPAY ==
--- OUTSIDE RECORDS SUMMARY | 2008-08-16 08:30 | XMS_ITS | Continuity of Care Document ---
Author Organization Formerly [facility] Address [address] [place] [address] [place] [address] Phone Care Team Providers Care Welt Maker Name Role Phone Francisco Henning Unavailable Unavailable Procedures Procedure Date Office/outpatient Visit, [facility] Corneal Pachymetry Advance Directives Directive Yes / No Effective Date File Name No Information Encounters Encounter Description Practice Location Reason(s) For Visit Diagnoses Date Provider Providers Copied on Encounter Office/outpat ient Visit, [facility], [address] [place], [place], [id number], [place] tel:[phone] [facility] No Information [id number] 9 Jaymeebony Rezahil. [address] [facility] [address], [place], [address], [place]. tel:[phone] Referring Provider: Sofía Roa OD, [address] [facility], [place], [address]. tel:[phone] Family History Family Member Type Diagnosis Age At Onset No Information Payers Payer name Insurance type Covered libertarian ID Authoriza tion(s) [employer] Adv CI [id number] Social History Type Description Quantity Date Captured Comments Sex Female Smoking Status No Information Chief Complaint And Reason For Visit No Information Reason For Referral Reason For Referral No Information History Of Present Illness Encounter Date Complaint History Of Prese nt Illness No Information Functional Status Date Functional Assessmen t No Information Instructions Date Instruction Additional Infor mation No Information Assessments Type Assessment Date No Information Patient Care Teams Name Effective Dates (start - stop) Status Members No Information
--- OUTSIDE RECORDS SUMMARY | 2024-12-22 16:32 | XMS_ITS | Clinical Summary ---
Author Organization [facility] joshi Address [address] [place] [id number] Phone Care Team Providers Care Oriental Medicine Practitioner Name Role Phone Redd Carballo MD Primary Care Provider [phone] Allergies No known active allergies Medications Symbicort 160-4.5 MCG/ACT inhaler INHALE 2 PUFFS BY MOUTH EVERY 12 HOURS. 03/04/2022 Active Tiadylt ER 120 MG 24 hr capsule Take by mouth 1 (one) time each day 01/26/2022 Active HYDROcodone-kelli taminophen (NORCO) 5-325 MG per tablet TAKE 1 TABLET BY MOUTH EVERY DAY NEEDED FOR PAIN 01/27/2022 Active lisinopril-hydr oCHLOROthiazide (PRINZIDE) 20-12.5 MG per tablet Take 1 tablet by mouth in the morning and 1 tablet before bedtime. 02/27/2022 Active meprobamate (EQUANIL) 400 MG tablet TAKE 1 TABLET BY MOUTH 4 TIMES DAILY 03/08/2022 Active zolpidem (AMBIEN) 5 MG tablet Take 5 mg by mouth 1 (one) time each day 01/29/2022 Active aspirin 81 MG chewable tablet Chew 81 mg 1 (one) time each day Active cephalexin (KEFLEX) 250 MG capsule Take 250 mg by mouth 3 (three) times a week Active lovastatin (MEVACOR) 20 MG tablet Take 20 mg by mouth every night Active Active Problems Problem Noted Date Diagnosed Date Systolic hypertension 03/20/2022 Immunizations Immunization Administration Dates Next Due Influenza TIV (IM) 03/20/2022(Deferred: Patient Refused) Pneumococcal Conjugate 12/12/2021 Family History Medical History Relation Comments Kidney disease Mother Relation Status Comments Mother Social History Tobacco Use Types Packs/Day Years Used Date Smoking Tobacco: Never Smokeless Tobacco: Never Tobacco Cessation:Counseling Given: Not Answered Alcohol Use Standard Drinks/Week Comments Not Currently 0 (1 standard drink = 0.6 oz pur e alcohol) Comments Unknown Sex and Gender Information Value Date Recorded Sex Assigned at Not on file Legal Sex Female 9:04 AM MDT Gender Identity Not on file Sexual Orientation Not on file Last Filed Vital Signs Vital Sign Reading Time Taken Comments Blood Pressure 148/72 03/20/2022 12:09 PM NAIL MACHINE OPERATOR Pulse 72 03/20/2022 12:09 PM NAIL MACHINE OPERATOR Temperature 36.2 C (97.1 F) 03/20/2022 12:09 PM NAIL MACHINE OPERATOR Respiratory Rate - - Oxygen Saturation - - Inhaled Oxygen Concentration - - Weight 70.3 kg (155 lb) 03/20/2022 12:09 PM NAIL MACHINE OPERATOR Height 157.5 cm (5' 2) 03/20/2022 12:09 PM NAIL MACHINE OPERATOR Body Mass Index 28.35 03/20/2022 12:09 PM NAIL MACHINE OPERATOR Plan of Treatment Health Maintenance Due Date Last Done Comments Pneumococcal PPSV23/PCV13 65 + Years / Low and Medium Risk (1 of 2 - PCV) 1990 Influenza Vaccine (#1) 2024 Insurance [employer] MEDICARE ADVANTAGE Care Teams Oriental Medicine Practitioner Relationship Specialty Start Date End Date Redd Carballo MD [address] [place] [address] PCP - General Internal Medicine 01/15/22
[2024-12-22 19:18] LABS: Hematocrit 38.4 % (37.0-47.0); Hemoglobin 12.0 g/dL (12.0-15.0); Immature Granulocyte Percent A 0.3 % (0-0.5); Lymphocytes Absolute Auto 3.76 K/mm3 (0.9-3.2); Mean Corpuscular HGB Conc 31.3 g/dl (32-36); Mean Corpuscular Hemoglobin 31.7 pg (26-34); Mean Corpuscular Volume 101.6 fl (80-100); Nucleated Red Blood Cells Absolute Auto 0.000 K/mm3 (0.0-0.012); Nucleated Red Blood Cells Perc 0.0 % (0.0-0.2); Platelet Count Result 307 k/mm3 (150-375); Red Blood Count 3.78 M/mm3 (4.2-5.4); White Blood Count 9.2 K/mm3 (4.5-10.0)
[2024-12-22 19:34] LABS: Alanine Aminotransferase 15 U/L (6-35); Albumin Level 4.2 g/dL (3.5-5.1); Alkaline Phosphatase 91 U/L (38-126); Anion Gap 8 mmol/L (4-12); Aspartate Amino Transferase 49 U/L (14-36); Bilirubin,Total 0.3 mg/dL (0.2-1.3); Blood Urea Nitrogen 30 mg/dL (7-17); Calcium 10.1 mg/dL (8.4-10.2); Carbon Dioxide 28 mmol/L (22-30); Chloride 102 mmol/L (98-107); Estimated Glomerular Filt Rate 44; Glucose 84 mg/dL (65-110); Potassium 4.4 mmol/L (3.4-5.0); Sodium 138 mmol/L (137-145); Total Protein 8.3 g/dL (6.3-8.2)
[2024-12-22 20:10] LABS: Thyroid Stimulating Hormone 10.400 uIU/mL (0.465-4.680)
== END 2024-12-22 14:52 | disposition home or self-care (01) ==
LOC: ANHGOSHLAB 14:51
PROVIDERS: PCP Family Medicine; Visit Provider Family Medicine
DX: E87.5 Hyperkalemia (principal); D50.9 Iron deficiency anemia, unspecified; R53.83 Other fatigue; G93.41 Metabolic encephalopathy; R41.89 Other symptoms and signs involving cognitive functions and awareness
CPT/HCPCS: 36415; 80053; 84443; 85025

== ENCOUNTER 2025-04-07 13:00 | Inpatient (IN) | payer MEDICARE, SELFPAY ==
[2025-04-07] VITALS (9 sets, daily range): BP systolic 151–200; BP diastolic 69–94; PULSE 83–104; RESP 16–26; TEMP 36.4–37.3; O2SAT 95–97; BMI 28.7
--- NOTE | ~2025-04-07 | XR_ITS ---
XR chest 1V portable 04/07/2025 15:26 Indication: Shortness of breath Procedure: AP portable chest Comparison: 08/31/2024 Findings: Left lower lobe airspace disease, compatible with pneumonia. No pleural effusion. Heart size normal. Right lung clear. Impression: 1: Left lower lobe airspace disease, compatible with pneumonia. Reviewed, dictated and finalized at location O. COORDINATOR Impression: 1: Left lower lobe airspace disease, compatible with pneumonia.
--- NOTE | ~2025-04-07 | XR_ITS ---
MODIFIED ESOPHAGRAM HISTORY: Coughing with medications and meals TECHNIQUE: Modified barium esophagram was performed on 04/10/2025. I administered fluoroscopy and performed the exam with speech pathologist. Patient was seated for lateral fluoroscopic imaging for ingestion of thin liquids, pudding, solids and quantified amounts, followed by thin liquids in uncontrolled amounts. This was recorded on tape. A single fluoroscopic spot image was also recorded. The DAP for this procedure was 0.894 Gycm2. The amount of fluoroscopy time used during this procedure was 1.6 minutes. FINDINGS: Oral stage: Adequate function. Pharyngeal stage: Transient/flash laryngeal penetration which rapidly clears without aspiration.. Cervical/esophageal stage: Adequate function. IMPRESSION: Transient/flash laryngeal penetration without aspiration. Please correlate with speech pathologist findings and specific feeding recommendations. Reviewed, dictated and finalized at location A. IDE CONTRACTOR SALES IMPRESSION: Transient/flash laryngeal penetration without aspiration. Please c orrelate with speech pathologist findings and specific feeding recommendations.
--- NOTE | 2025-04-07 14:08 | ECG_ITS ---
Test Date: 2025-04-07 14:37:14 Measurements Intervals [place] Rate: 102 P: 66 [place]: 196 QRS: -65 QRSD: 96 T: 57 QT: 349 QTc: 455 Interpretive Statements SINUS TACHYCARDIA POSSIBLE LEFT ATRIAL ENLARGEMENT LEFT ANTERIOR FASCICULAR BLOCK VOLTAGE CRITERIA FOR LVH BASELINE ARTIFACT- I, II, AVR, AVL ABNORMAL ECG No previous ECG available for comparison Electronically Signed On 04-07-2025 20:03:14 ANSWERING SERVICE OPERATOR by Omid Hummel D.O.
--- OUTSIDE RECORDS SUMMARY | 2025-04-07 14:14 | XMS_ITS | Clinical Summary ---
Author Organization [facility] j[facility] Address [address] [place] [id number] Phone Care Team Providers Care Training And Development Head Name Role Phone Redd Carballo MD Primary Care Provider [phone] Allergies No known active allergies Medications Symbicort [...] Comments Blood Pressure 148/72 03/20/2022 12:09 PM LINUX ADMINISTRATOR Pulse 72 03/20/2022 12:09 PM LINUX ADMINISTRATOR Temperature 36.2 C (97.1 F) 03/20/2022 12:09 PM LINUX ADMINISTRATOR Respiratory Rate - - Oxygen Saturation - - Inhaled Oxygen Concentration - - Weight 70.3 kg (155 lb) 03/20/2022 12:09 PM LINUX ADMINISTRATOR Height 157.5 cm (5' 2) 03/20/2022 12:09 PM LINUX ADMINISTRATOR Body Mass Index 28.35 03/20/2022 12:09 PM LINUX ADMINISTRATOR Plan of Treatment Health Maintenance Due Date Last Done Comments Pneumococcal PPSV23/PCV13 65 + Years / Low and Medium Risk (1 of 2 - PCV) 1990 Influenza Vaccine (#1) 2024 Insurance [employer] MEDICARE ADVANTAGE Care Teams Training And Development Head Relationship Specialty Start Date End Date Redd Carballo MD [address] [place] [address] PCP - General Internal Medicine 01/15/22
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
[2025-04-07 14:46] LABS: Hematocrit 42.5 % (37.0-47.0); Hemoglobin 14.0 g/dL (12.0-15.0); Immature Granulocyte Percent A 0.5 % (0-0.5); Lymphocytes Absolute Auto 2.62 K/mm3 (0.9-3.2); Mean Corpuscular HGB Conc 32.9 g/dl (32-36); Mean Corpuscular Hemoglobin 32.0 pg (26-34); Mean Corpuscular Volume 97.0 fl (80-100); Nucleated Red Blood Cells Absolute Auto 0.000 K/mm3 (0.0-0.012); Nucleated Red Blood Cells Perc 0.0 % (0.0-0.2); Platelet Count Result 253 k/mm3 (150-375); Red Blood Count 4.38 M/mm3 (4.2-5.4); White Blood Count 15.8 K/mm3 (4.5-10.0)
[2025-04-07 15:05] LABS: Alanine Aminotransferase 19 U/L (6-35); Albumin Level 4.6 g/dL (3.5-5.1); Alkaline Phosphatase 88 U/L (38-126); Anion Gap 7 mmol/L (4-12); Aspartate Amino Transferase 57 U/L (14-36); Bilirubin,Total 0.7 mg/dL (0.2-1.3); Blood Urea Nitrogen 26 mg/dL (7-17); Calcium 11.0 mg/dL (8.4-10.2); Carbon Dioxide 25 mmol/L (22-30); Chloride 104 mmol/L (98-107); Estimated CRCL calculation 33 ml/min; Estimated Glomerular Filt Rate 54; Glucose 119 mg/dL (65-110); Potassium 4.3 mmol/L (3.4-5.0); Sodium 136 mmol/L (137-145); Total Protein 8.9 g/dL (6.3-8.2)
[2025-04-07 15:07] LABS: Add Urine Microscopic? YES; Appearance Urine Clear (Clear); Glucose Urine UA Negative (Negative); Leukocyte Esterase Ur Negative LEU/UL (Negative); Nitrate Urine Negative (Negative); Non Pathogenic Casts 0-2; Specific Grav Ur 1.016 (1.001-1.035)
--- NOTE | 2025-04-07 16:45 | WPCEDHO ---
ED Hand Off Checklist All vitals saved:yes IV Site documented:yes All med administrations documented:yes Triage Note Triage Note pt to be seen for fever, cough, 04/07/25 13:01 hypoxia. pt stated that she choked yesterday on her medications. pt was 88-90 on RA placed on 4L [facility] Allergies nitrofurantoin (From Macrobid) Allergy (Intermediate, Verified 02/21/25 11:25) Hives benzonatate Adverse Reaction (Mild, Verified 02/21/25 11:25) Anaphylaxis throat closing, hard to breathe Family History (Last Reviewed 04/07/25 @ 14:19 by Souleymane Smith DO) Father Diabetes mellitus Bone cancer Multiple myeloma Bladder cancer Mother Cancer of kidney Renal disease Administered/Completed Medications Discontinued Medications Labetalol HCl (Labetalol Hcl Inj 100 Mg/20 Ml Vial) 20 mg IV PUSH ONCE ONE Stop: 04/07/25 16:01 Last Admin: 04/07/25 16:11 Dose: 20 mg Documented By: RONNA Interventions/Assessments General Assessment Start: 04/07/25 13:00 Freq: Status: Active Protocol: Document 04/07/25 14:43 RONNA (Rec: 04/07/25 14:46 [facility] [id number]) [place] Respiratory Assessment Respiratory Rate (04 07 H -20) Effort Labored,Short of Breath,Spontaneous Pattern Tachypnea Depth Normal Chest Expansion Symmetrical Bilateral Throughout Phase Expiratory Lung Sounds Clear,Diminished Cough Description Acute Cough Frequency Intermittent Additional pt reports she may have aspirated a medication Respiratory Comments yesterday, concerned about aspiration. Pt does not wear home O2. Oxygen Delivery Nasal Cannula Method Oxygen Flow Rate 2 Pulse Oximetry (90- 97 100) IV / Saline Lock, Insert Start: 04/07/25 13:00 Freq: Status: Active Protocol: Document 04/07/25 14:35 RONNA (Rec: 04/07/25 14:36 [facility] [id number]) IV Assessment Peripheral Access Right Hand IV Catheter Access Initiated IV Insertion Date 04/07/25 IV Insertion Time 14:36 Catheter Gauge 20 IV Site Assessment WNL IV Care and WNL Maintenance Peripheral Access Left Wrist IV Catheter Access Initiated Before Arrival IV Insertion Date 04/07/25 IV Insertion Time 14:00 Catheter Gauge 20 IV Site Assessment WNL IV Care and WNL Maintenance Last Vital Signs Temperature 99.2 F 04/07/25 16:29 Pulse Rate 83 12/26/25 16:29 Respiratory Rate 24 H 04/07/25 16:29 Pulse Oximetry 97 04/07/25 16:29 Blood Pressure 172/76 H 04/07/25 16:29 Blood Pressure Mean 108 04/07/25 16:29 Blood Pressure Position Supine 04/07/25 16:29 Oxygen Flow Rate 2 04/07/25 14:43 Weight 66 kg 04/07/25 13:01 Last Result - Abnormals Only WBC 15.8 K/mm3 (4.5-10.0) H 04/07/25 14:37 Neut % (Auto) 75.3 % (45.5-73.1) H 04/07/25 14:37 Lymph % (Auto) 16.6 % (18.3-44.2) L 04/07/25 14:37 [place] # (Auto) 1.1 K/mm3 (0.1-0.6) H 04/07/25 14:37 Abs Immat Gran (auto) 0.08 K/mm3 (0.00-0.031) H 04/07/25 14:37 Absolute Neuts (auto) 11.9 K/mm3 (1.3-6.7) H 04/07/25 14:37 Sodium 136 mmol/L (137-145) L 04/07/25 14:37 BUN 26 mg/dL (7-17) H 04/07/25 14:37 Estimated GFR 54 (59-) L 04/07/25 14:37 Glucose 119 mg/dL (65-110) H 04/07/25 14:37 Calcium 11.0 mg/dL (8.4-10.2) H 04/07/25 14:37 AST 57 U/L (14-36) H 04/07/25 14:37 Total Protein 8.9 g/dL (6.3-8.2) H 04/07/25 14:37 Urine Protein 1+ mg/dL (Negative) H 04/07/25 14:59 Urine Ketones Trace mg/dL (Negative) H 04/07/25 14:59 Ur Blood (Man) Non-hemolyzed trace (Negative) H 04/07/25 14:59 Urine RBC 6-10 /hpf (0-2) H 04/07/25 14:59 Most Recent Suicide Severity Rating Suicide Severity Rating NO RISK INDICATED 04/07/25 13:01
[2025-04-07 16:46] LABS: INR 1.1; Prothrombin Time 14.0 Seconds (11.1-14.7)
[2025-04-07 16:47] LABS: Partial Thromboplastin Time 30.2 Seconds (22.3-36.8)
[2025-04-07 16:48] LABS: CRP 6.3 mg/dL (<1.0)
[2025-04-07] MEDS: cefTRIAXone 1 GM in SODIUM CHLORIDE 0.9% IV 50 ML 100 ML IVPB (16:49)
[2025-04-07] MEDS: SODIUM CHLORIDE 0.9% IV 1,000 ML 999 ML IV CONT (16:50)
[2025-04-07] MEDS: AMPICILLIN SODIUM/SULBACTAM 3 GM in SODIUM CHLORIDE 0.9% IV 100 ML 200 ML IVPB ×2 (17:33→23:29)
[2025-04-07] MEDS: DOXYCYCLINE IV 100 MG in SODIUM CHLORIDE 0.9% IV 100 ML IVPB (17:33)
[2025-04-07] MEDS: LACTATED RINGERS 1,000 ML 999 ML IV CONT (17:33)
--- NOTE | 2025-04-07 17:51 | ADMGEN ---
This patient, Tana Mcfarlane, was admitted to Medical Room 341-01. Patient/family oriented to hospital policies and general routines including ID bracelet, bed and alarms, visiting hours, pain management, procedures, bathroom and other care routines, personal items, smoking policy, room service/diet, and visiting hours. Information on how to activate the Rapid Response Team has been discussed. Patient/Family are encouraged to report perceived risks to care and to ask questions if they do not understand what they are told or what they should do.
--- NOTE | 2025-04-07 18:34 | PC.NURSE ---
RN called Ilan JOLLY, and spoke with patient about code status. Patient thought she was a Full Code, but has DNR/Modified Code papers in her chart recently signed and gone over with PCP. Patient and Ilan JOLLY, confirmed to do what paper work says.
[2025-04-08] VITALS (11 sets, daily range): BP systolic 127–168; BP diastolic 69–83; PULSE 91–113; RESP 17–18; TEMP 36.5–37.2; O2SAT 93–99
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
--- NOTE | 2025-04-08 02:07 | PC.NURSE ---
Pt temperature noted to be 99.0 F, Pt has no complaints at this time. [employer] SCI[employer]ORAT[employer] TECHNICIAN Sofía Killian notified, NNO at this time.
[2025-04-08] MEDS: AMPICILLIN SODIUM/SULBACTAM 3 GM in SODIUM CHLORIDE 0.9% IV 100 ML 200 ML IVPB ×3 (05:46→17:08)
[2025-04-08 06:31] LABS: Hematocrit 40.7 % (37.0-47.0); Hemoglobin 13.5 g/dL (12.0-15.0); Mean Corpuscular HGB Conc 33.2 g/dl (32-36); Mean Corpuscular Hemoglobin 32.1 pg (26-34); Mean Corpuscular Volume 96.7 fl (80-100); Platelet Count Result 225 k/mm3 (150-375); Red Blood Count 4.21 M/mm3 (4.2-5.4); White Blood Count 13.8 K/mm3 (4.5-10.0)
[2025-04-08 06:52] LABS: Anion Gap 8 mmol/L (4-12); Blood Urea Nitrogen 18 mg/dL (7-17); Calcium 11.4 mg/dL (8.4-10.2); Carbon Dioxide 27 mmol/L (22-30); Chloride 105 mmol/L (98-107); Estimated CRCL calculation 34 ml/min; Estimated Glomerular Filt Rate 56; Glucose 109 mg/dL (65-110); Potassium 3.6 mmol/L (3.4-5.0); Sodium 140 mmol/L (137-145)
--- NOTE | 2025-04-08 09:44 | P.PNIM_ITS ---
Assessment and Plan Assessment and Plan (1) Aspiration pneumonia: Qualifiers: Aspiration pneumonia type: due to vomit Laterality: left Lung location: lower lobe of lung Qualified Code(s): J69.0 - Pneumonitis due to inhalation of food and vomit Code(s): J69.0 - Pneumonitis due to inhalation of food and vomit Status: Acute Assessment and Plan: -the patient initially was given Rocephin and doxycycline. She has been changed to Unasyn 04/07 at 1800 -patient will BNP own a swallow study will be performed. -the patient stated that she typically does not get choked on food or water however she stated that she took all for pills at 1 time and got choked on her pills. -sputum and blood cultures are pending. -if patient passes her swallow study, please continue with her oral home medications. -her white blood count is 15.8. -her C reactive protein is 6.3. -T-max of 99.1? -Chest X-Ray 04/07/25 15:29 Impression: 1: Left lower lobe airspace disease, compatible with pneumonia. - follow blood and sputum cultures -waiting speech for eval/recommendations (2) COPD (chronic obstructive pulmonary disease) case management patient: Code(s): J44.9 - Chronic obstructive pulmonary disease, unspecified Status: Acute Assessment and Plan: -DuoNebs -the patient is not typically on oxygen at home but is currently on 2 L per nasal cannula. -continue with home inhalers. (3) Essential (primary) hypertension: Code(s): I10 - Essential (primary) hypertension Status: Chronic Assessment and Plan: -patient is NPO at this time she was given labetalol 1 time in the emergency room. -she has p.r.n. hydralazine with parameters as well. -please resume her home diltiazem if she passes the swallow study. She is also on hydralazine which is currently on hold. Please resume lisinopril as well with if she passes the swallow study. -her blood pressure is currently 161/77. (4) Hyperlipidemia: Code(s): E78.5 - Hyperlipidemia, unspecified Status: Acute Assessment and Plan: -please continue with lovastatin if she passes her swallow study. (5) Hypothyroid: Code(s): E03.9 - Hypothyroidism, unspecified Status: Acute Assessment and Plan: -please continue with her levothyroxine a she passes her swallow study. (6) Chronic kidney disease, stage 3a: Code(s): N18.31 - Chronic kidney disease, stage 3a Status: Acute Assessment and Plan: -patient's BUN is 26 with a baseline around 30-32. Creatinine is normal. Estimated GFR is 54 which is improved from her previous values of 44-43. Please continue to monitor renal function daily. Medical Record Review I have reviewed the following patient records and this information was taken into consideration when formulating the assessment and plan.: previous labs Time Spent With Patient Time with patient: 25 - 35 minutes Subjective Date/time seen: 04/08/25 09:44 Interval history: This is a 84-year-old female patient who has a history of hypertension, chronic kidney disease, and COPD. The patient came to the emergency room with complaints of shortness of breath. She stated that her caregiver set up her medication and she took them all at 1 time. The patient stated that she choked on her medication two days ago. She did well during the night and in the in the morning she woke up with a fever of 100.2. She had a nonproductive cough and some shortness of breath. She stated that she does not typically choke on food or water but rather she feels that she tried to take too many pills at 1 time. Her white count is 15.8. Her BUN is 26 and creatinine is normal 0.98 with the estimated GFR 54. Calcium is slightly high at 11. Her CRP is 6.3. Urine shows 1+ protein, trace ketones and non hemolyzed trace blood. Patient was initially started on ceftriaxone, doxycycline, labetalol, and IV fluids. Chest x-ray was read as left lower lobe airspace disease, compatible with pneumonia. Patient was started on oxygen at 2 L per nasal cannula when she is not typically on oxygen. Her blood pressure was elevated to 161/77. The patient is being adm itted to inpatient status on 04/08/2025. 04/08 pt is seen and examined. She is currently NPO for speech eval. denies any pain, sob, n/v/d. Appears calma nd comfortable. Review of Systems Constitutional: Constitutional: Reports as per HPI and Reports no additional constitutional complaints Eyes: Eyes: Reports as per HPI and Reports no additional eye complaints ENT: Reports system reviewed and no additional complaints, except as documented and Reports Normal hearing present Cardiovascular: Cardiovascular: Reports no additional cardiovascular compla ints Respiratory: Respiratory: Reports as per HPI and Reports no additional respiratory complaints Gastrointestinal: Gastrointestinal: Reports as per HPI and Reports no additional gastrointestinal complaints Genitourinary: Genitourinary: Reports no additional female genitourinary complaints Musculoskeletal: Musculoskeletal: Reports no additional musculoskeletal complaints Integumentary/Breasts: Skin/Breast: Reports system reviewed and no additional complaints, except as docu Neurologic: Reports system reviewed and no additional complaints, except as documented and Reports Normal hearing present Psychiatric: Psychiatric: Reports no additional psychiatric complaints and Reports as per HPI Hematologic/Lymphatic: Hematologic/Lymphatic: Reports no additional hematologic/lymphatic complaints Allergic/Immunologic: Allergic/Immunologic: Reports no additional allergic/immunologic complaints Exam Const: General: cooperative, comfortable, no acute distress, well developed, awake, Physically active and average body habitus Nutritional Appearance: average body habitus Orientation/consciousness: oriented to person and oriented to place HENMT: Head: normal to inspection, No palpable skull fracture present, normocephalic and atraumatic Eyes: General: appearance normal, both eyes and all related structures Alignment and Position: alignment normal Eyelids: eyelids normal Neck: Neck: normal visual inspection and full ROM Chest: Chest palpation & inspection: normal inspection of the chest Resp: Effort & Inspection: normal respiratory effort Auscultation: diminished lung sounds Cardio: Palpation: normal PMI Rate: regular rate Rhythm: regular rhythm Heart sounds: S1 normal heart sound present and S2 normal heart sound present Peripheral pulses: Peripheral pulses 2+ throughout GI: Inspection: normal to inspection Auscultation: normal bowel sounds Rectal Exam: deferred : General: Yes no CVA tenderness Back/Spine/Pelvis: Back: no CVA tenderness Skin: General skin exam: normal color Lesions: no lesions Rashes: no rashes Trauma: no lacerations or abrasions Wounds: no wounds Hair: normal Nails: normal Neuro: General: oriented to person and oriented to place Cranial nerves: Yes Normal hearing present Extrem: General: normal to inspection Right upper extremity: normal to inspection and shoulder/upper arm Left upper extremity: normal to inspection and shoulder/upper arm Right lower extremity: normal to inspection Left lower extremity: normal to inspection Psych: Appearance: grossly normal Mental Status: mental status grossly normal Speech and movement: Normal speech and movement present Affect: normal affect Attitude: cooperative Thought process: Normal thought process present Objective Data Vital Signs Vital Signs: Vital Signs - 24 hr 04/07/25 13:30 04/07/25 14:41 04/07/25 14:43 Temperature 98.3 F 99.1 F Pulse Rate 102 H 102 H Respiratory Rate 22 H 16 26 H Blood Pressure 151/69 H 200/94 H Pulse Oximetry 95 97 97 Oxygen Delivery Oxygen Flow Rate 2 Fraction of Inspired Oxygen 04/07/25 16:12 04/07/25 16:29 04/07/25 18:03 Temperature 99.2 F Pulse Rate 104 H 83 Respiratory Rate 23 H 24 H Blood Pressure 172/76 H 172/76 H Pulse Oximetry 97 97 97 Oxygen Delivery Nasal Cannula Oxygen Flow Rate 3.5 Fraction of Inspired Oxygen 04/07/25 20:00 04/07/25 20:00 04/07/25 20:00 Temperature 97.6 F Pulse Rate 97 98 Respiratory Rate 20 Blood Pressure 161/77 H Pulse Oximetry 96 96 Oxygen Delivery Nasal Cannula Oxygen Flow Rate 2 Fraction of Inspired Oxygen 04/07/25 20:35 04/07/25 22:00 04/08/25 00:00 Temperature 97.6 F Pulse Rate 98 92 Respiratory Rate 20 Blood Pressure 161/77 H Pulse Oximetry 96 96 Oxygen Delivery Nasal Cannula Oxygen Flow Rate 2 Fraction of Inspired Oxygen 04/08/25 00:00 04/08/25 04:00 04/08/25 04:00 Temperature 99.0 F 98.4 F Pulse Rate 91 111 H 106 H Respiratory Rate 18 18 Blood Pressure 168/73 H 164/81 H Pulse Oximetry 96 96 Oxygen Delivery Oxygen Flow Rate Fraction of Inspired Oxygen 04/08/25 06:00 04/08/25 08:00 04/08/25 08:00 Temperature 98.4 F 97.7 F Pulse Rate 109 H 105 H 105 H Respiratory Rate 18 17 Blood Pressure 164/81 H 150/69 H Pulse Oximetry 96 95 Oxygen Delivery Oxygen Flow Rate Fraction of Inspired Oxygen 04/08/25 08:35 04/08/25 08:47 Temperature Pulse Rate Respiratory Rate Blood Pressure Pulse Oximetry 97 93 Oxygen Delivery Nasal Cannula Room Air Oxygen Flow Rate 2 Fraction of Inspired Oxygen 28 21 Intake/Output Intake/Output: Intake & Output 04/05/25 04/06/25 04/07/25 12/27/25 23:59 23:59 23:59 23:59 Intake Total 200 Output Total 1300 Balance 200 -1300 Meds/Results Medications: Active Medications Generic Name Dose Route Start Last Admin Trade Name Freq PRN Reason Stop Dose Admin Acetaminophen 650 mg 04/08/25 02:26 Acetaminophen 650 Mg Suppository RECTAL Q6H PRN Mild Pain (1-3) or Fever Albuterol/Ipratropium 3 ml 04/08/25 08:00 04/08/25 07:36 Ipratropium 0.5 Mg/Albuterol Sulfate 2.5 Mg (Base) Ampul.Neb 3 Ml INHALATION Not Given Q6HRT [facility] Hydralazine HCl 10 mg 04/08/25 00:44 04/08/25 02:41 Hydralazine Hcl 20 Mg/Ml Vial IV PUSH 10 mg Q8H PRN Administration Blood Pressure - High Ampicillin Sodium/Sulbactam 100 mls @ 200 mls/hr 04/07/25 18:00 04/08/25 05:46 Sodium 3 gm/ Sodium Chloride IVPB 200 mls/hr Q6HR [facility] Administration Lidocaine 1 patch 04/08/25 02:09 Lidocaine 5% Patch TRANSDERM DAILY PRN pain Fluticasone/Salmeterol 2 puff 04/08/25 08:00 04/08/25 07:35 Fluticasone/Salmeterol 115-21 Mcg Inhaler 1 Puff INHALATION Not Given Q12HRT [facility] Triamcinolone Acetonide 1 applic 04/08/25 09:00 Triamcinolone Acet 0.1% Cream 15 Gm Tube TOPICAL BID [facility] Radiology Results: ITS Impressions Chest X-Ray 04/07/25 15:29 Impression: 1: Left lower lobe airspace disease, compatible with pneumonia. Labs Labs: Laboratory Results - last 24 hr 04/07/25 04/07/25 04/07/25 14:37 14:59 16:25 WBC 15.8 H RBC 4.38 Hgb 14.0 Hct 42.5 MCV 97.0 MCH 32.0 MCHC 32.9 RDW 12.5 Plt Count 253 MPV 9.6 Immature Gran % (Auto) 0.5 Neut % (Auto) 75.3 H Lymph % (Auto) 16.6 L [place] % (Auto) 6.8 Eos % (Auto) 0.6 Baso % (Auto) 0.2 Lymph # (Auto) 2.62 [place] # (Auto) 1.1 H Eos # (Auto) 0.1 Baso # (Auto) 0.0 Abs Immat Gran (auto) 0.08 H Absolute Neuts (auto) 11.9 H Absolute Nucleated RBC 0.000 Nucleated RBC % 0.0 PT 14.0 INR 1.1 APTT 30.2 Sodium 136 L Potassium 4.3 Chloride 104 Carbon Dioxide 25 Anion Gap 7 BUN 26 H Creatinine 0.98 Estim Creat Clear Calc 33 Estimated GFR 54 L Glucose 119 H Lactic Acid 0.8 Calcium 11.0 H Total Bilirubin 0.7 AST 57 H ALT 19 Alkaline Phosphatase 88 C-Reactive Protein 6.3 H Total Protein 8.9 H Albumin 4.6 Urine Color Yellow Urine Appearance Clear Urine pH 7.5 Ur Specific [place] 1.016 Urine Protein 1+ H Urine Glucose (UA) Negative Urine Ketones Trace H Ur Blood (Man) Non-hemolyzed trace H Urine Nitrate Negative Urine Bilirubin Negative Urine Urobilinogen 0.2 Leukocyte Esterase Rfl Negative Urine RBC 6-10 H Urine WBC 0-5 Ur Squamous Epith Cells None seen Urine Bacteria None seen Urine Casts 0-2 04/08/25 05:23 WBC 13.8 H RBC 4.21 Hgb 13.5 Hct 40.7 MCV 96.7 MCH 32.1 MCHC 33.2 RDW 12.6 Plt Count 225 MPV 10.2 Immature Gran % (Auto) Neut % (Auto) Lymph % (Auto) [place] % (Auto) Eos % (Auto) Baso % (Auto) Lymph # (Auto) [place] # (Auto) Eos # (Auto) Baso # (Auto) Abs Immat Gran (auto) Absolute Neuts (auto) Absolute Nucleated RBC Nucleated RBC % PT INR APTT Sodium 140 Potassium 3.6 Chloride 105 Carbon Dioxide 27 Anion Gap 8 BUN 18 H Creatinine 0.95 Estim Creat Clear Calc 34 Estimated GFR 56 L Glucose 109 Lactic Acid Calcium 11.4 H Total Bilirubin AST ALT Alkaline Phosphatase C-Reactive Protein Total Protein Albumin Urine Color Urine Appearance Urine pH Ur Specific [place] Urine Protein Urine Glucose (UA) Urine Ketones Ur Blood (Man) Urine Nitrate Urine Bilirubin Urine Urobilinogen Leukocyte Esterase Rfl Urine RBC Urine WBC Ur Squamous Epith Cells Urine Bacteria Urine Casts Quality VTE Prophylaxis VTE prophylaxis: mechanical ordered
--- NOTE | 2025-04-08 12:19 | PC.NURSE ---
Patient's home bundle person is present and requested to change patient's POA to themselves. Patient laura requested this around 0615 this morning (04/08/25). RN called charge master coordinator Chelsy about this request and they stated this was not something we normally did and that RN needed to reach out to CC. CC ended up coming up to the nurse's station right after RN left a message. RN briefed CC Soledad on situation and both RN and CC went into room. Patient's bundle person was very rude and hostile immediately to both RN and CC. CC stated that she would have to complete POA change paper work on Thursday when management is here because we do not have the resources for that during the weekend. Patient's bundle person stated If we weren't going to do that and witness signature and change, she would have someone else come up that she knows to witness it. She also stated multiple times that she could not believe patient was NPO and didn't have her medications this morning or fluids. RN educated and stated NPO status was out of precaution for recent aspiration that made her hypoxic and end up here. Patient's bundle person continued to belittle and insult CC and RN. RN had to tell bundle person that We were in charge of her care while she was here and she respects that she (bundle person) is also an RN, but that RN is following docotor's orders as she is in our hospital and under our care. Patient's bundle person told CC and RN she was done with us two and that we could leave. Patient then stated Her POA, Ilan, lives far away and has his own family and does not have any buisness of being her POA. She also stated that he has not even called her since she has been here. However, RN called son, Ilan, yesterday during admission because he is listed as POA on legal paperwork done by PCP on 02/21/2025. Ilan stated to follow what paper work says from PCP.
--- NOTE | 2025-04-08 13:00 | PCSTNOTE ---
Please refer to the Bedside Swallow Evaluation in the EMR. Please note, silent aspiration cannot be ruled out at bedside.
--- NOTE | 2025-04-08 17:03 | PC.NURSE ---
During purposeful rounding, RN found call light on ground, water spilled everywhere, and patient very confused. Patient was easily reoriented and had a normal conversation with RN. RN readdressed morning POA conversation with patient and stressed that this was why major decisions like changing the POA paperwork and signatures on legal documents were not appropriate at this time, given her orientation fluctuating so frequently. Patient agreed strongly and said For sure. I should not make major decisions while I am feeling and acting this way.
[2025-04-09] VITALS (10 sets, daily range): BP systolic 131–174; BP diastolic 61–90; PULSE 68–120; RESP 16–20; TEMP 36.3–37.1; O2SAT 93–98
[2025-04-09] MEDS: AMPICILLIN SODIUM/SULBACTAM 3 GM in SODIUM CHLORIDE 0.9% IV 100 ML 200 ML IVPB ×4 (00:31→17:38)
[2025-04-09 05:42] LABS: Hematocrit 39.2 % (37.0-47.0); Hemoglobin 13.1 g/dL (12.0-15.0); Mean Corpuscular HGB Conc 33.4 g/dl (32-36); Mean Corpuscular Hemoglobin 32.6 pg (26-34); Mean Corpuscular Volume 97.5 fl (80-100); Platelet Count Result 231 k/mm3 (150-375); Red Blood Count 4.02 M/mm3 (4.2-5.4); White Blood Count 11.1 K/mm3 (4.5-10.0)
[2025-04-09 06:00] LABS: Anion Gap 8 mmol/L (4-12); Blood Urea Nitrogen 28 mg/dL (7-17); Calcium 10.8 mg/dL (8.4-10.2); Carbon Dioxide 25 mmol/L (22-30); Chloride 108 mmol/L (98-107); Estimated CRCL calculation 31 ml/min; Estimated Glomerular Filt Rate 49; Glucose 112 mg/dL (65-110); Potassium 3.4 mmol/L (3.4-5.0); Sodium 141 mmol/L (137-145)
[2025-04-09 12:26] LABS: Toxigenic C. Diff NEGATIVE (NEGATIVE)
[2025-04-09] MEDS: POTASSIUM CHLORIDE 20 MEQ ER TABLET PO (12:36)
[2025-04-09] MEDS: dilTIAZem HCL CD 120 MG CAP.24HR PO (14:57)
[2025-04-09] MEDS: HYDROcodone/acetaminophen (*CRX) 5-325 MG TABLET 1 TAB PO (16:12)
--- NOTE | 2025-04-09 16:36 | PM.IMPN2 ---
Assessment and Plan Assessment and Plan (1) Aspiration pneumonia: Qualifiers: Aspiration pneumonia type: due to vomit Laterality: left Lung location: lower lobe of lung Qualified Code(s): J69.0 - Pneumonitis due to inhalation of food and vomit Code(s): J69.0 - Pneumonitis due to inhalation of food and vomit Status: Acute Assessment and Plan: Reported choking with pills. Speech consulted for swallow study and no evidence aspiration WBC 15.8 on admission, improving >11.1 Tmax 99.2 04/07, has been afebrile 04/07 Chest X-Ray Left lower lobe airspace disease, compatible with pneumonia. Antbiotics Ceftriaxone 1G 04/07, Doxycycline 100mg IV 04/07 x1 Unasyn 04/07-present Plan -sputum and blood cultures are pending --Resumed home meds --Continue Unasyn --Follow temps and WBC --Check covid/flu/rsv --Modified barium study with speech since another episode of coughing/vomiting and possible aspiration (2) COPD (chronic obstructive pulmonary disease) case management patient: Code(s): J44.9 - Chronic obstructive pulmonary disease, unspecified Status: Acute Assessment and Plan: Has been refusing nebs: Takes symbicort and nebs prn at home -the patient is not typically on oxygen at home but is currently on 2 L per nasal cannula. -wean O2 as tolerated --Minimal wheezing on exam, would encourage to use (3) Essential (primary) hypertension: Code(s): I10 - Essential (primary) hypertension Status: Chronic Assessment and Plan: Patient is NPO at this time she was given labetalol 1 time in the emergency room. -she has p.r.n. hydralazine with parameters as well. -Resumed home diltiazem, hydralazine, lisinopril -139/76 tonight (4) Hyperlipidemia: Code(s): E78.5 - Hyperlipidemia, unspecified Status: Acute Assessment and Plan: -please continue with lovastatin if she passes her swallow study. (5) Hypothyroid: Code(s): E03.9 - Hypothyroidism, unspecified Status: Acute Assessment and Plan: -please continue with her levothyroxine a she passes her swallow study. (6) Chronic kidney disease, stage 3a: Code(s): N18.31 - Chronic kidney disease, stage 3a Status: Acute Assessment and Plan: -patient's BUN is 26 with a baseline around 30-32. Creatinine is normal. Estimated GFR is 54 which is improved from her previous values of 44-43. Please continue to monitor renal function daily. (7) Dysuria: Code(s): R30.0 - Dysuria Status: Acute Assessment and Plan: Left back discomfort. UA was negative on 04/07 Dysuria may be 2/2 excoriation but also reporting left flank pain. consider CT abd/pelvis if not resolving or UA positive. Risk of UTI with frequent diarrhea Plan 84-year-old female patient who has a history of hypertension, chronic kidney disease, and COPD who presented for shortness of breath. She stated that her caregiver set up her medication and she took them all at 1 time. The patient stated that she choked on her medication two days ago. She did well during the night and in the in the morning she woke up with a fever of 100.2. She had a nonproductive cough and some shortness of breath. She stated that she does not typically choke on food or water but rather she feels that she tried to take too many pills at 1 time. Her white count is 15.8. Her BUN is 26 and creatinine is normal 0.98 with the estimated GFR 54. Calcium is slightly high at 11. Her CRP is 6.3. Urine shows 1+ protein, trace ketones and non hemolyzed trace blood. Patient was initially started on ceftriaxone, doxycycline, labetalol, and IV fluids. Chest x-ray was read as left lower lobe airspace disease, compatible with pneumonia. Patient was started on oxygen at 2 L per nasal cannula when she is not typically on oxygen. Her blood pressure was elevated to 161/77. The patient is being admitted to inpatient status on 04/08/2025. Time Spent With Patient Time with patient: Greater than 35 minutes Subjective Date/time seen: 04/09/25 16:36 Interval history: Reports frequent diarrhea, c-diff was negative Drinking but not well. Reports dysuria but has a perineal rash/escoriation related to frequent diarrhea, reportedly started after antibiotics. Also reports left flank pain. Repeating UA 1 dose of imodium 4 since c-diff negative, then prn. Fluids x2 days Creatinine was more elevated. Tachycardic to 120 Exam Narrative: General - Awake and alert. No acute distress Eyes - PERRLA, EOM intact ENT - No thrush, No erythema Neck - No noticeable or palpable swelling Lymph Nodes - No lymphadenopathy Cardiovascular - RRR no m/r/g, no JVD Lungs: Clear to auscultation, No wheezing, use of accessory muscles, no crackles or wheezes. Skin - Skin warm and dry, no wounds, perineal redness Abdomen - Normal bowel sounds, abdomen soft and nontender Left flank pain Extremities - No edema, cyanosis or clubbing Musculoskeletal - 5/5 strength, normal range of motion, no swollen or erythematous joints. Neurological ? Alert and oriented x 3, forgetful, CN 2-12 grossly intact. Psych: Normal mood and affect Objective Data Vital Signs Vital Signs: Vital Signs - 24 hr 04/08/25 20:00 04/08/25 20:00 04/08/25 20:00 Temperature 97.7 F Pulse Rate 103 H 107 H Respiratory Rate 18 Blood Pressure 151/81 H Pulse Oximetry 99 Oxygen Delivery Room Air Fraction of Inspired Oxygen 04/08/25 21:35 04/09/25 00:00 04/09/25 00:00 Temperature 98.8 F Pulse Rate 110 H 100 Respiratory Rate 18 Blood Pressure 156/66 H Pulse Oximetry 95 93 Oxygen Delivery Room Air Fraction of Inspired Oxygen 04/09/25 04:00 04/09/25 04:00 04/09/25 07:30 Temperature 98.2 F Pulse Rate 107 H 100 Respiratory Rate 20 Blood Pressure 165/84 H Pulse Oximetry 93 93 Oxygen Delivery Room Air Fraction of Inspired Oxygen 21 04/09/25 08:00 04/09/25 08:41 04/09/25 09:30 Temperature 97.8 F Pulse Rate 78 Respiratory Rate 16 Blood Pressure 145/78 H Pulse Oximetry 96 Oxygen Delivery Room Air Room Air Fraction of Inspired Oxygen 04/09/25 12:00 04/09/25 13:30 04/09/25 14:00 Temperature 97.6 F 97.4 F L Pulse Rate 107 H 106 H Respiratory Rate 18 16 Blood Pressure 170/90 H 174/82 H 146/69 H Pulse Oximetry 98 98 Oxygen Delivery Fraction of Inspired Oxygen Intake/Output Intake/Output: Intake & Output 04/06/25 04/07/25 04/08/25 04/09/25 23:59 23:59 23:59 23:59 Intake Total 200 700 840 Output Total 1500 1 Balance 200 -800 839 Meds/Results Medications: Active Medications Generic Name Dose Route Start Last Admin Trade Name Freq PRN Reason Stop Dose Admin Acetaminophen 650 mg 04/08/25 02:26 Acetaminophen 650 Mg Suppository RECTAL Q6H PRN Mild Pain (1-3) or Fever Hydrocodone Bitart/Acetaminophen 1 tab 04/09/25 16:01 04/09/25 16:12 Hydrocodone/Acetaminophen (*Crx) 5-325 Mg Tablet PO 1 tab BID PRN Administration Pain Rated 4-6 Albuterol/Ipratropium 3 ml 04/09/25 16:15 Ipratropium 0.5 Mg/Albuterol Sulfate 2.5 Mg (Base) Ampul.Neb 3 Ml INHALATION Q6HRT PRN Shortness Of Breath Or Wheezing Diltiazem HCl 120 mg 04/09/25 14:30 04/09/25 14:57 Diltiazem Hcl Cd 120 Mg Cap.24hr PO 120 mg QAM MERVAT Administration Ferrous Sulfate 325 mg 04/10/25 09:00 Ferrous Sulfate 325 Mg Tablet BY MOUTH DAILY [facility] Hydralazine HCl 10 mg 04/08/25 00:44 04/09/25 12:35 Hydralazine Hcl 20 Mg/Ml Vial IV PUSH 10 mg Q8H PRN Administration Blood Pressure - High Hydrochlorothiazide 12.5 mg 04/10/25 09:00 Hydrochlorothiazide 12.5 Mg Capsule PO Q12HR [facility] Ampicillin Sodium/Sulbactam 100 mls @ 200 mls/hr 04/07/25 18:00 04/09/25 13:06 Sodium 3 gm/ Sodium Chloride IVPB Infused Q6HR [facility] Infusion Levothyroxine Sodium 100 mcg 04/10/25 06:30 Levothyroxine Sodium 100 Mcg Tablet PO DAILY@0630 [facility] Lidocaine 1 patch 04/08/25 02:09 Lidocaine 5% Patch TRANSDERM DAILY PRN pain Lisinopril 20 mg 04/10/25 09:00 Lisinopril 20 Mg Tablet PO Q12HR [facility] Loratadine 10 mg 04/10/25 09:00 Loratadine 10 Mg Tablet PO QAM [facility] Triamcinolone Acetonide 1 applic 04/08/25 09:00 04/09/25 14:53 Triamcinolone Acet 0.1% Cream 15 Gm Tube TOPICAL Not Given BID MERVAT Radiology Results: ITS Impressions Chest X-Ray 04/07/25 15:29 Impression: 1: Left lower lobe airspace disease, compatible with pneumonia. Labs Labs: Laboratory Results - last 24 hr 04/09/25 04/09/25 04/09/25 05:23 05:26 11:24 WBC 11.1 H RBC 4.02 L Hgb 13.1 Hct 39.2 MCV 97.5 MCH 32.6 MCHC 33.4 RDW 12.5 Plt Count 231 MPV 10.0 Sodium 141 Potassium 3.4 Chloride 108 H Carbon Dioxide 25 Anion Gap 8 BUN 28 H D Creatinine 1.07 H Estim Creat Clear Calc 31 Estimated GFR 49 L Glucose 112 H Calcium 10.8 H C. difficile (PCR) Negative Quality VTE Prophylaxis VTE prophylaxis: mechanical ordered Hospitalist MIPS Advance Care Plan I have confirmed that the patient's Advanced Care Plan is present, code status is documented, or surrogate decision maker is listed in patient medical record.: Yes Medication Reconciliation I have utilized all available resources to obtain, update and review the patients current medications (includes all prescriptions, OTC, herbals, cannabis, and nutritional supplements).: Yes
[2025-04-09] MEDS: LOPERAMIDE HCL 2 MG CAPSULE 4 MG PO (17:38)
[2025-04-09] MEDS: SODIUM CHLORIDE 0.9% IV 1,000 ML 100 ML IV CONT (17:38)
--- NOTE | 2025-04-09 19:18 | PC.NURSE ---
Notified Na Smalls hospitalist of unwitnessed coughing/vomiting episode at dinner. Hospitalist stated she may order modified barium swallow, no new orders at this time.
[2025-04-09 19:28] LABS: Influenza A QL RT-PCR Negative (Negative); Influenza B QL RT-PCR Negative (Negative); RSV RNA, RT-PCR Negative (Negative); SARS-CoV-2 RNA PCR Negative (Negative)
[2025-04-09] MEDS: MICONAZOLE NITRATE 2% CREAM 30 GM TUBE 1 APPLIC TOPICAL (21:28)
[2025-04-10] VITALS (9 sets, daily range): BP systolic 132–150; BP diastolic 68–75; PULSE 66–94; RESP 16–18; TEMP 36.3–36.9; O2SAT 94–99
[2025-04-10] MEDS: AMPICILLIN SODIUM/SULBACTAM 3 GM in SODIUM CHLORIDE 0.9% IV 100 ML 200 ML IVPB ×5 (00:01→23:14)
[2025-04-10 02:02] LABS: Add Urine Microscopic? YES; Appearance Urine Clear (Clear); Glucose Urine UA Negative (Negative); Leukocyte Esterase Ur Negative LEU/UL (Negative); Nitrate Urine Negative (Negative); Non Pathogenic Casts 0-2; Specific Grav Ur 1.035 (1.001-1.035)
[2025-04-10] MEDS: SODIUM CHLORIDE 0.9% IV 1,000 ML 100 ML IV CONT ×2 (05:47→17:17)
[2025-04-10 06:06] LABS: Hematocrit 35.2 % (37.0-47.0); Hemoglobin 11.5 g/dL (12.0-15.0); Mean Corpuscular HGB Conc 32.7 g/dl (32-36); Mean Corpuscular Hemoglobin 32.1 pg (26-34); Mean Corpuscular Volume 98.3 fl (80-100); Platelet Count Result 216 k/mm3 (150-375); Red Blood Count 3.58 M/mm3 (4.2-5.4); White Blood Count 8.2 K/mm3 (4.5-10.0)
[2025-04-10 06:28] LABS: Anion Gap 5 mmol/L (4-12); Blood Urea Nitrogen 30 mg/dL (7-17); CRP 4.9 mg/dL (<1.0); Calcium 9.8 mg/dL (8.4-10.2); Carbon Dioxide 26 mmol/L (22-30); Chloride 111 mmol/L (98-107); Estimated CRCL calculation 32 ml/min; Estimated Glomerular Filt Rate 51; Glucose 98 mg/dL (65-110); Potassium 3.4 mmol/L (3.4-5.0); Sodium 142 mmol/L (137-145)
[2025-04-10 06:48] LABS: Procalcitonin 0.1 ng/mL
[2025-04-10 06:57] LABS: Thyroid Stimulating Hormone Reflex 0.176 uIU/mL (0.465-4.68)
--- NOTE | 2025-04-10 08:06 | P.PNIM_ITS ---
Subjective Date/time seen: 04/10/25 08:06 Objective Data Vital Signs Vital Signs: Vital Signs - 24 hr 04/09/25 08:41 04/09/25 09:30 04/09/25 12:00 Temperature 97.6 F Pulse Rate 107 H Respiratory Rate 18 Blood Pressure 170/90 H Pulse Oximetry 98 Oxygen Delivery Room Air Room Air Fraction of Inspired Oxygen 04/09/25 12:00 04/09/25 13:30 04/09/25 14:00 Temperature 97.4 F L Pulse Rate 103 H 106 H Respiratory Rate 16 Blood Pressure 174/82 H 146/69 H Pulse Oximetry 98 Oxygen Delivery Fraction of Inspired Oxygen 04/09/25 16:00 04/09/25 16:00 04/09/25 20:00 Temperature 98.4 F 97.9 F Pulse Rate 68 120 H 99 Respiratory Rate 16 18 Blood Pressure 139/76 131/61 Pulse Oximetry 96 93 Oxygen Delivery Fraction of Inspired Oxygen 04/09/25 20:00 04/09/25 20:00 04/09/25 20:43 Temperature 97.9 F Pulse Rate 99 98 99 Respiratory Rate 18 18 Blood Pressure 131/61 Pulse Oximetry 93 93 Oxygen Delivery Room Air Fraction of Inspired Oxygen 21 04/10/25 00:00 04/10/25 00:00 04/10/25 04:00 Temperature 98 F 98.4 F Pulse Rate 94 92 66 Respiratory Rate 18 18 Blood Pressure 144/68 H 132/74 Pulse Oximetry 98 98 Oxygen Delivery Fraction of Inspired Oxygen 04/10/25 04:00 04/10/25 06:00 Temperature 97.8 F Pulse Rate 93 87 Respiratory Rate 16 Blood Pressure 141/73 H Pulse Oximetry 99 Oxygen Delivery Fraction of Inspired Oxygen Intake/Output Intake/Output: Intake & Output 04/07/25 04/08/25 04/09/25 04/10/25 23:59 23:59 23:59 23:59 Intake Total 510 132 3054 1100 Output Total 1500 1 Balance 200 -800 1499 1100 Meds/Results Medications: Active Medications Generic Name Dose Route Start Last Admin Trade Name Freq PRN Reason Stop Dose Admin Acetaminophen 650 mg 04/08/25 02:26 Acetaminophen 650 Mg Suppository RECTAL Q6H PRN Mild Pain (1-3) or Fever Hydrocodone Bitart/Acetaminophen 1 tab 04/09/25 16:01 04/09/25 16:12 Hydrocodone/Acetaminophen (*Crx) 5-325 Mg Tablet PO 1 tab BID PRN Administration Pain Rated 4-6 Albuterol/Ipratropium 3 ml 04/09/25 16:15 Ipratropium 0.5 Mg/Albuterol Sulfate 2.5 Mg (Base) Ampul.Neb 3 Ml INHALATION Q6HRT PRN Shortness Of Breath Or Wheezing Benzocaine 1 spray 04/09/25 17:07 Benzocaine 20% Aer Spr (*Sp) 56 Gm Can TOPICAL PRN PRN Perineal Discomfort Diltiazem HCl 120 mg 04/09/25 14:30 04/09/25 14:57 Diltiazem Hcl Cd 120 Mg Cap.24hr PO 120 mg QAM MERVAT Administration Ferrous Sulfate 325 mg 04/10/25 09:00 Ferrous Sulfate 325 Mg Tablet BY MOUTH DAILY MERVAT Hydralazine HCl 10 mg 04/08/25 00:44 04/09/25 12:35 Hydralazine Hcl 20 Mg/Ml Vial IV PUSH 10 mg Q8H PRN Administration Blood Pressure - High Hydrochlorothiazide 12.5 mg 04/10/25 09:00 Hydrochlorothiazide 12.5 Mg Capsule PO Q12HR [facility] Ampicillin Sodium/Sulbactam 100 mls @ 200 mls/hr 04/07/25 18:00 04/10/25 05:46 Sodium 3 gm/ Sodium Chloride IVPB 200 mls/hr Q6HR MERVAT Administration Sodium Chloride 1,000 mls @ 100 mls/hr 04/09/25 17:05 04/10/25 05:47 Normal Saline Iv IV CONT 04/11/25 17:04 100 mls/hr .Q10H MERVAT Administration Levothyroxine Sodium 100 mcg 04/10/25 06:30 04/10/25 05:47 Levothyroxine Sodium 100 Mcg Tablet PO Not Given DAILY@0630 [facility] Lidocaine 1 patch 04/08/25 02:09 Lidocaine 5% Patch TRANSDERM DAILY PRN pain Lisinopril 20 mg 04/10/25 09:00 Lisinopril 20 Mg Tablet PO Q12HR [facility] Loperamide HCl 2 mg 04/09/25 17:03 Loperamide Hcl 2 Mg Capsule PO PRN PRN Diarrhea Loratadine 10 mg 04/10/25 09:00 Loratadine 10 Mg Tablet PO QAM [facility] Miconazole Nitrate 1 applic 04/09/25 21:00 04/09/25 21:28 Miconazole Nitrate 2% Cream 30 Gm Tube TOPICAL 1 applic Q12HR MERVAT Administration Triamcinolone Acetonide 1 applic 04/08/25 09:00 04/09/25 14:53 Triamcinolone Acet 0.1% Cream 15 Gm Tube TOPICAL Not Given BID [facility] Radiology Results: ITS Impressions Chest X-Ray 04/07/25 15:29 Impression: 1: Left lower lobe airspace disease, compatible with pneumonia. Labs Labs: Laboratory Results - last 24 hr 04/09/25 04/09/25 04/09/25 01:50 11:24 18:46 WBC RBC Hgb Hct MCV MCH MCHC RDW Plt Count MPV ESR Sodium Potassium Chloride Carbon Dioxide Anion Gap BUN Creatinine Estim Creat Clear Calc Estimated GFR Glucose Calcium C-Reactive Protein Procalcitonin TSH (Reflex) Urine Color Yellow Urine Appearance Clear Urine pH 5.5 Ur Specific [place] 1.035 Urine Protein 1+ H Urine Glucose (UA) Negative Urine Ketones Trace H Ur Blood (Man) Negative Urine Nitrate Negative Urine Bilirubin Negative Urine Urobilinogen 0.2 Leukocyte Esterase Rfl Negative Urine RBC 3-5 H Urine WBC 0-5 Ur Squamous Epith Cells Occasional Urine Bacteria None seen Urine Casts 0-2 C. difficile (PCR) Negative Influenza A (RT-PCR) Negative Influenza B (RT-PCR) Negative RSV (RT-PCR) Negative SARS-CoV-2 RNA (RT-PCR) Negative 04/10/25 05:19 WBC 8.2 RBC 3.58 L Hgb 11.5 L Hct 35.2 L MCV 98.3 MCH 32.1 MCHC 32.7 RDW 12.6 Plt Count 216 MPV 10.3 ESR 60 H Sodium 142 Potassium 3.4 Chloride 111 H Carbon Dioxide 26 Anion Gap 5 BUN 30 H Creatinine 1.03 H Estim Creat Clear Calc 32 Estimated GFR 51 L Glucose 98 Calcium 9.8 C-Reactive Protein 4.9 H Procalcitonin 0.1 TSH (Reflex) 0.176 L Urine Color Urine Appearance Urine pH Ur Specific [place] Urine Protein Urine Glucose (UA) Urine Ketones Ur Blood (Man) Urine Nitrate Urine Bilirubin Urine Urobilinogen Leukocyte Esterase Rfl Urine RBC Urine WBC Ur Squamous Epith Cells Urine Bacteria Urine Casts C. difficile (PCR) Influenza A (RT-PCR) Influenza B (RT-PCR) RSV (RT-PCR) SARS-CoV-2 RNA (RT-PCR)
[2025-04-10] MEDS: FERROUS SULFATE 325 MG TABLET BY MOUTH (09:16)
[2025-04-10] MEDS: dilTIAZem HCL CD 120 MG CAP.24HR PO (09:16)
[2025-04-10] MEDS: LORATADINE 10 MG TABLET PO (09:17)
[2025-04-10 09:21] LABS: Free T4 Free Thyroxine Reflex 1.19 ng/dL (0.78-2.19)
[2025-04-10] MEDS: MICONAZOLE NITRATE 2% CREAM 30 GM TUBE 1 APPLIC TOPICAL ×2 (09:24→21:47)
[2025-04-10] MEDS: TRIAMCINOLONE ACET 0.1% CREAM 15 GM TUBE 1 APPLIC TOPICAL ×2 (09:24→17:17)
[2025-04-10] MEDS: HYDROcodone/acetaminophen (*CRX) 5-325 MG TABLET 1 TAB PO ×2 (09:49→21:44)
[2025-04-10 10:29] LABS: Total Triiodothyronine (T3) 0.82 NG/ML (0.82-1.58)
--- NOTE | 2025-04-10 10:54 | PCSTNOTE ---
Please refer to the Modified Barium Swallow Evaluation in the EMR. The above pleasant and cooperative pt was seen for an MBS. She was alert, oriented, and able to follow commands. She is on a regular diet and reported an isolated incident of choking on a large pill. She denied having any other incidents of coughing or choking associated with liquids or solids. Oral mucosa is normal; dentition is in good condition; The patient was seated for a lateral view and presented with 5 ml trials of thin liquid barium via a spoon, pudding consistency barium trials via a spoon, cracker trials coated with barium pudding via a spoon, a barium pill, and uncontrolled thin liquid barium. This was presented via a cup & straw. Oral preparatory and oral phase symptoms: none. Pharyngeal phase symptoms: within functional limits; trace and very shallow laryngeal penetration occurred with thin liquids (age appropriate) but it was cleared and no aspiration risk. Esophageal stage symptoms: none. Overall, no aspiration occurred. Impressions: Normal swallow Ability. Recommendations: Level 7 regular solids and level 0 regular liquids. Recommend giving only 1 pill at a time. No further ST is warranted at this time.
[2025-04-11] VITALS: PULSE 73
[2025-04-11 04:00] VITALS: PULSE 84
[2025-04-11] MEDS: AMPICILLIN SODIUM/SULBACTAM 3 GM in SODIUM CHLORIDE 0.9% IV 100 ML 200 ML IVPB ×2 (05:17→12:43)
[2025-04-11] MEDS: SODIUM CHLORIDE 0.9% IV 1,000 ML 100 ML IV CONT (05:18)
[2025-04-11 05:32] VITALS: BP 152/66; PULSE 81; RESP 18; TEMP 36.6; O2SAT 93
[2025-04-11] MEDS: LEVOTHYROXINE SODIUM 100 MCG TABLET PO (05:33)
[2025-04-11 05:56] LABS: Hematocrit 35.1 % (37.0-47.0); Hemoglobin 11.4 g/dL (12.0-15.0); Immature Granulocyte Percent A 0.4 % (0-0.5); Lymphocytes Absolute Auto 3.01 K/mm3 (0.9-3.2); Mean Corpuscular HGB Conc 32.5 g/dl (32-36); Mean Corpuscular Hemoglobin 32.7 pg (26-34); Mean Corpuscular Volume 100.6 fl (80-100); Nucleated Red Blood Cells Absolute Auto 0.000 K/mm3 (0.0-0.012); Nucleated Red Blood Cells Perc 0.0 % (0.0-0.2); Platelet Count Result 206 k/mm3 (150-375); Red Blood Count 3.49 M/mm3 (4.2-5.4); White Blood Count 7.7 K/mm3 (4.5-10.0)
[2025-04-11 06:25] LABS: Alanine Aminotransferase 17 U/L (6-35); Albumin Level 3.4 g/dL (3.5-5.1); Alkaline Phosphatase 58 U/L (38-126); Anion Gap 7 mmol/L (4-12); Aspartate Amino Transferase 49 U/L (14-36); Bilirubin,Total 0.7 mg/dL (0.2-1.3); Blood Urea Nitrogen 23 mg/dL (7-17); Calcium 9.0 mg/dL (8.4-10.2); Carbon Dioxide 23 mmol/L (22-30); Chloride 110 mmol/L (98-107); Estimated CRCL calculation 37 ml/min; Estimated Glomerular Filt Rate 60; Glucose 95 mg/dL (65-110); Potassium 3.8 mmol/L (3.4-5.0); Sodium 140 mmol/L (137-145); Total Protein 6.9 g/dL (6.3-8.2)
[2025-04-11 08:00] VITALS: PULSE 62
[2025-04-11] MEDS: FERROUS SULFATE 325 MG TABLET BY MOUTH (09:55)
[2025-04-11] MEDS: dilTIAZem HCL CD 120 MG CAP.24HR PO (09:55)
[2025-04-11] MEDS: LORATADINE 10 MG TABLET PO (09:55)
[2025-04-11] MEDS: HYDROcodone/acetaminophen (*CRX) 5-325 MG TABLET 1 TAB PO (09:59)
[2025-04-11] MEDS: TRIAMCINOLONE ACET 0.1% CREAM 15 GM TUBE 1 APPLIC TOPICAL (10:01)
[2025-04-11] MEDS: MICONAZOLE NITRATE 2% CREAM 30 GM TUBE 1 APPLIC TOPICAL (10:01)
--- NOTE | 2025-04-11 11:57 | P.CDI_ITS ---
CDI Query Clarification Request Please specify status of COPD, if known. * Exacerbation of COPD * No exacerbation/stable COPD * Other * Unable to determine Assessment and Plan (1) Aspiration pneumonia: Qualifiers: Aspiration pneumonia type: due to vomit Laterality: left Lung location: lower lobe of lung Qualified Code(s): J69.0 - Pneumonitis due to inhalation of food and vomit Code(s): J69.0 - Pneumonitis due to inhalation of food and vomit Status: Acute Assessment and Plan: Reported choking with pills. Speech consulted for swallow study and no evidence aspiration WBC 15.8 on admission, improving >11.1 Tmax 99.2 04/07, has been afebrile 04/07 Chest X-Ray Left lower lobe airspace disease, compatible with pneumonia. Antbiotics Ceftriaxone 1G 04/07, Doxycycline 100mg IV 04/07 x1 Unasyn 04/07-present Plan -sputum and blood cultures are pending --Resumed home meds --Continue Unasyn --Follow temps and WBC --Check covid/flu/rsv --Modified barium study with speech since another episode of coughing/vomiting and possible aspiration (2) COPD (chronic obstructive pulmonary disease) case management patient: Code(s): J44.9 - Chronic obstructive pulmonary disease, unspecified Status: Acute Assessment and Plan: Has been refusing nebs: Takes symbicort and nebs prn at home -the patient is not typically on oxygen at home but is currently on 2 L per nasal cannula. -wean O2 as tolerated --Minimal wheezing on exam, would encourage to use Patient was started on oxygen at 2 L per nasal cannula when she is not typically on oxygen.
[2025-04-11 12:00] VITALS: PULSE 86
[2025-04-11 14:00] VITALS: BP 137/66; PULSE 88; RESP 20; TEMP 36; O2SAT 95
== END 2025-04-11 15:00 | disposition home or self-care (01) | DRG 179 ==
LOC: ANHED 16:40 → ANH3MED 16:46
PROVIDERS: Nurse Practitioner; Nurse Practitioner Acute Care; Admitting Provider Internal Medicine; Emergency Provider Student in an Organized Health Care Education/Training Program; PCP Family Medicine; Visit Provider Nurse Practitioner Adult Health
DX: J69.8 Pneumonitis due to inhalation of other solids and liquids (principal); T17.398A Other foreign object in larynx causing other injury, initial encounter; J44.9 Chronic obstructive pulmonary disease, unspecified; Z77.22 Contact with and (suspected) exposure to environmental tobacco smoke (acute) (chronic); E78.5 Hyperlipidemia, unspecified; E03.9 Hypothyroidism, unspecified; I12.9 Hypertensive chronic kidney disease with stage 1 through stage 4 chronic kidney disease, or unspecified chronic kidney disease; N18.31 Chronic kidney disease, stage 3a; D47.2 Monoclonal gammopathy; R19.7 Diarrhea, unspecified; R30.0 Dysuria; G31.84 Mild cognitive impairment of uncertain or unknown etiology; E66.9 Obesity, unspecified; Z68.28 Body mass index [BMI] 28.0-28.9, adult; Z94.7 Corneal transplant status; M17.10 Unilateral primary osteoarthritis, unspecified knee; Z85.828 Personal history of other malignant neoplasm of skin; Z79.82 Long term (current) use of aspirin; Z79.891 Long term (current) use of opiate analgesic
CPT/HCPCS: 36415; 71045; 74230; 80048; 80053; 81001; 83605; 84145; 84439; 84443; 84480; 85025; 85027; 85610; 85652; 85730; 86140; 87040; 87070; 87205; 87493; 87637; 92526; 92610; 92611; 93005; 96374; 97110; 97161; 97166; 97530; 99285; A9270; J0295; J0360; J0696; J7030; J7120